=== PATIENT | female | born 1940 | race Caucasian/White ===

== ENCOUNTER 2023-07-11 10:52 | Inpatient (IN) | payer MEDICARE, SELFPAY ==
[2023-07-11] VITALS (83 sets, daily range): BP systolic 54–241; BP diastolic 39–199; PULSE 2–131; BMI 28.3
[2023-07-11] MEDS: LASIX 40 MG IV ×3 (08:48→16:36)
[2023-07-11] MEDS: DECADRON 10 MG IV (08:49)
[2023-07-11] MEDS: VENTOLIN NEBULES 7.5 MG INH (08:50)
--- NOTE | 2023-07-11 08:51 | ED.GENMED ---
History of Present Illness
General
Chief Complaint: Breathing Problem
Source: patient and ambulance crew
Exam Limitations: clinical condition
Time Seen by Provider: 07/11/23 08:40
Nursing documentation reviewed up to this point in time: agreed with
Travel History
Have you had any contact with someone who has COVID-19?: No
Do you have any symptoms of coronavirus? Fever > 100 degrees, chills, cough, shortness of breath, sore throat, loss of taste or smell, muscle aches, or headache?: No
History of Present Illness
History of Present Illness:
82-year-old female prior smoker has COPD hypertension has been sick for few days saw her PCP given an inhaler worsened over the past day or so up on like coughing possibly had a fever EMS was called found her agitated hypoxic did not tolerate a neb
pulse ox of around 80 tachypneic tachycardic placed on a nonrebreather brought here she is able to complete short sentences, has some lower extremity edema crackles or rhonchi
Past History
Past History
ED Past Medical History: Cancer (Breast), COPD, HTN and Hypercholesterolemia
ED Past Surgical History: Other (Lumpectomy, mastectomy, gisttumor)
Social History
Tobacco: Former smoker (2 PPD 40+ years)
Alcohol: None
Living: with family
Family History
Family History: Unable to obtain
Review of Systems
Review of Systems
Unable to obtain full review of systems at this time due to: due to acuity
All Other Systems: Not applicable
Constitutional: Reports fever
Respiratory: Reports cough and trouble breathing
Cardiac: Reports no symptoms; Denies chest pain
ABD/GI: Reports no symptoms
: Reports no symptoms
Musculoskeletal: Reports no symptoms
Skin: Reports no symptoms
Neurological: Reports no symptoms
Phy Exam
Physical Exam
Physical Exam:
Physical Exam
General: Ill-appearing female tachypneic tachycardic
Neck: No jaundice
Heart: Tachycardic
Lungs: Poor air movement crackles and rhonchi
Abdomen: normal bowel sounds. not tender. no CVAT
Neuro: alert and oriented. no focal neurological deficits
Skin: no rash
Psychiatric: well kept. interactive and cooperative
Extremities: no edema. no calf tenderness. negative homans. good distal pulses
Scores
Heart Failure Risk
Heart Failure Risk Score: Yes
History of Stroke or TIA: No
History of intubation for respiratory distress: No
Heart rate on ED arrival >/= 110: Yes
SaO2 <90% on arrival on room air: Yes
HR >/=110 during 3min walk test (or too ill to perform test): Yes
ECG has acute ischemic changes: Yes
Urea >/=12mmol/L (BUN 33.6mg/dL): Yes
Serum CO2>/=35mmol/L: No
Troponin I or T elevated to CT Level (0.4mg/dL): No
NT-proBNP >/=5,000ng/L (5,000pg/ml): Yes
HF Risk Score: 7
Admission Status: VERY HIGH RISK 69.8% Consider admission to hospital
Course
Orders/Labs/Results
Orders:
Orders
07/11/23 08:39
Portable Chest Xray [CR Chest Portable - 1 View] Urgent
Comment:
Reason For Exam: breathoing
Reason Study Needs to be Portable: Patient Unstable
07/11/23 08:40
Cardiac Monitoring- Treatment ONCE
IV Insert/Care/Rem.- Treatment PRN
Albuterol Sulfate [Ventolin Nebules] 7.5 mg INH R NOW STA
Dexamethasone Sod Phosphate [Decadron] 10 mg IV NOW STA
07/11/23 08:41
Electrocardiogram (*1) Stat
Reason for Study: Other
Other Reason for Exam: pneumonia
EKG- Treatment ONCE
07/11/23 08:44
Furosemide [Lasix] 40 mg IV NOW STA
07/11/23 08:45
Furosemide [Lasix] 40 mg .ROUTE .STK-MED ONE
Bipap [RESP] Urgent
Patient to use own unit?: No
Inspiratory Pressure (cm H2O): 12
Expiratory Pressure (cm H2O): 5
07/11/23 08:49
Add On- LAB Urgent
Tests Added?: procal
07/11/23 08:53
COVID-19 Antigen Urgent
Source: Nasal Swab
Complete Blood Count/With Diff Urgent
Lactic Acid Q4H
Comment: CANCEL 2nd LACTIC ACID IF 1st LACTIC ACID IS LESS THAN 2
NT-proBNP Urgent
Troponin I Urgent
Blood Culture Q30M
MARJORIE Source: Blood/Venous
Specimen Description:
Influenza A+B Rapid Molecular Urgent
MARJORIE Source: Nasal Swab
Specimen Description:
07/11/23 09:00
Nitroglycerin 100 mg/250 ml [Nitroglycerin Premix] 100 mg in 250 ml IV NOW
Initial dose in mcg/min, then titrate:: 100
Titrate to keep:: Other
Titrate to keep other:: SBP less than 140 mmHg
Titrate by mcg/min:: 20 mcg/min
Frequency of titrations (minutes):: every 1 minute (after initial bolus)
Additional Titration Instructions:: Bolus 400 mcg/min x 2 min. Decrease to 100 mcg/min & titrate
Maximum dose in mcg/min:: 200
Begin to taper infusion when:: Remained at goal for 2hrs
Taper by mcg/min:: 5 mcg/min
Frequency of taper (minutes) if patient maintains goal:: 30
Taper to off?: Yes
If infusion off & no longer maintaining goal:: Contact Provider
07/11/23 09:15
Blood Culture Q30M
MARJORIE Source: Blood/Venous
Specimen Description:
07/11/23 09:16
FentaNYL 1,000 MCG/100 ML [Sublimaze] 1,000 mcg in 100 ml .ROUTE .STK-MED
Propofol 1,000,000 Mcg/100 ml [Diprivan] 1,000,000 mcg in 100 ml .ROUTE .STK-MED
07/11/23 09:21
Arterial Blood Gas Urgent
%Oxygen/Room Air: nrb
07/11/23 09:30
Portable Chest Xray [CR Chest Portable - 1 View] Urgent
Comment:
Reason For Exam: tube placement
Reason Study Needs to be Portable: Unable to Transport
07/11/23 09:31
Basic Metabolic Panel Routine
Procalcitonin Routine
07/11/23 09:34
FentaNYL 1,000 MCG/100 ML [Sublimaze] 1,000 mcg in 100 ml IV NOW
Indication:: Light Sedation
Begin Infusion:: Now
Goal:: pain score </= 1, CPOT 0-2
Maximum dose in mcg/hr:: 300
Initial Dose in mcg/hr:: 50
Titration Instructions:: Titrate every 30 minutes if patient exhibits signs of pain or discomfort
Titration Instructions:: (pain score >/= 2, CPOT >/= 3).
Titration Instructions:: Administer bolus dose and increase infusion by 25 mcg/hr.
Taper Instructions:: If pain score at goal for 4 consecutive hours (pain score </= 1, CPOT 0-2)
Taper Instructions:: decrease infusion by 50 mcg/hr every 2 hours.
Taper Instructions:: When dose </= 50 mcg/hr may turn infusion off and consider PRN
Taper Instructions:: intermittent bolus doses only.
Over-sedation Instructions:: If CPOT 0-2 (goal) and RASS -3 to -5 (below goal) decrease sedative by 50%
Over-sedation Instructions:: first. If pain score remains at goal and RASS remains below goal in 1 hour,
Over-sedation Instructions:: decrease opioid infusion by 50%.
Notify provider:: immediately if pt exhibits: chest wall rigidity, hemodynamic instability,
Notify provider:: agitation/pain despite maximum dosing, pain when RASS below goal.
Additional Instructions:: Patient MUST be mechanically ventilated.
Fentanyl Citrate/Pf [Sublimaze] 50 mcg IV [id number] PRN
Fentanyl Citrate/Pf [Sublimaze] 80 mcg IV NOW STA
07/11/23 09:38
[employer] Consult Urgent
Consulting Provider: Darryl London
Was physician already notified: Yes
07/11/23 09:39
CARDIOLOGY CONSULT Urgent
Consulting Provider: Alen Jc
Was physician already notified: Yes
07/11/23 09:40
Romero Placement- Treatment ONCE
Reason for insertion: I&O's Critical Care
07/11/23 09:41
Furosemide [Lasix] 40 mg IV NOW STA
07/11/23 09:46
Echo 2D MMode Color/Doppler Urgent
Reason for Study: chf-portable bed 24 in ER thanks
Aspirin 300 mg RECTAL NOW STA
07/11/23 10:18
NORepinephrine 4 MG/250 ML [Levophed] 4 mg in 250 ml .ROUTE .STK-MED
07/11/23 10:28
ABG [Arterial Blood Gas] Routine
%Oxygen/Room Air: andi 100
07/11/23 10:30
NORepinephrine 4 MG/250 ML [Levophed] 4 mg in 250 ml IV PER PROTOCOL
Initial dose in mcg/min, then titrate:: 2
Titrate to keep:: SBP > 90 mmHg
Titrate by mcg/min:: 1-2 mcg/min
Frequency of titrations (minutes):: 5
Maximum dose in ICU in mcg/min:: 30
Maximum dose in IMU in mcg/min:: 8
Maximum dose in IVU in mcg/min:: 4
Begin to taper infusion when:: Remained at goal for 4hrs
Taper by mcg/min:: 1-2 mcg/min
Frequency of taper (minutes) if patient maintains goal:: 30
Taper to off?: Yes
If infusion off & no longer maintaining goal:: Contact Provider
07/11/23 10:31
Admit/Transfer Patient As Directed
Co-Sign Provider:
Level of Care: Inpatient admission
Assign to:: ICU
Physician / Group: hospitalist-Tess
Diagnosis: flash pulm edema
Reason for Hospitalization: ICU, vent
Expected length of stay greater than two midnights?: Yes
ELOS- Estimated Length of Stay in days: 4
I certify the patient meets the requirements for IP care: Yes
07/11/23 10:33
Code Status As Directed
Resuscitation Status: Full Code
07/11/23 12:45
Lactic Acid Q4H
Comment: CANCEL 2nd LACTIC ACID IF 1st LACTIC ACID IS LESS THAN 2
Abnormal Lab Results
07/11/23 07/11/23
08:53 09:21
MCV 101.6 H fL
(81.0-99.0)
MCH 32.9 H pg
(27.0-31.0)
MCHC 32.3 L g/dL
(33.0-37.0)
Absolute Monos (auto) 1.2 H 10^3/uL
(0.1-0.6)
Monocytes % 14.6 H %
(1.7-9.3)
pH 7.20 L
(7.35-7.45)
pCO2 52 H mmHg
(32-35)
pO2 198 H mmHg
(83-108)
HCO3 20.3 L mmol/L
(21-28)
ABG O2 Sat (Measured) 99.7 H %
(94-98)
Lactic Acid 4.0 H* mmol/L
(0.7-2.0)
Troponin I 0.063 H* ng/ml
07/11/23 08:53
Vital Signs
Initial and Last Documented VS:
Initial Vital Signs
Pulse Resp Pulse Ox
118 21 98
07/11/23 08:39 07/11/23 08:39 07/11/23 08:39
Last Documented Vital Signs
Pulse Resp BP Pulse Ox
128 26 176/124 98
07/11/23 09:54 07/11/23 09:50 07/11/23 09:54 07/11/23 09:50
Procedures
Intubations
Procedure completed by: el/zuri
Method of Intubation: glidescope
Tube size (cm): 7.5
Placement confirmed by: auscutation, CXR and capnography
Breath sounds after intubation: equal
Intubation complications: no complications
MDM/Problems Addressed
Differential Diagnosis Includes:
CHF hypertensive urgency CT pneumonia COPD pneumothorax
MDM/Problems Addressed:
Hypoxia
Chronic conditions affecting care:
COPD
Chronic conditions affecting care: COPD
Acute Exacerbation and/or Progression of Chronic Illness: COPD
*Pulse Oximetry
Patient hypoxic: yes
Comment: 79
*EKG
Interpreted by ED Provider?: Yes
Interpretation: abnormal
Comparison EKG: changes noted
Heart Rate: 138
Rate: tachycardiac
Ischemia: non-specific ST changes
*Medical Tech Interpretation
Rate: tachycardiac
Interpretation: abnormal
Heart Rate: 136
Rhythm: sinus
*Critical Care Note
Total Time (30-74mins, 75-104mins- exclusive of procedures): 35
Data Reviewed
Source: patient, records and previous hospital records
Update Note
Update Note:
Update chest x-ray noted blood pressure up prior echo noted try nebs steroids a dose of diuretics, labs including troponin proBNP cultures procalcitonin pending as his chest's report will check ABG BiPAP follow closely
BP up Tridil intervention with IV nitrates follow closely
Update patient continues to be tachypneic tachycardic agitated despite maximal noninvasive measures intubated without difficulty
ABG sent prior to intubation will adjust ventilator accordingly message sent to hospitalist cardiology petrologist
10:15 AM blood pressure soft now sedation and nitro held will start low-dose Levophed
ED Attending Note
-
Portions of this chart may have been created with voice recognition software.� Occasional wrong word or��sound alike� substitutions may have occurred due to the inherent limitations of voice recognition software.
Discharge Plan
Departure
Patient Disposition: Admit
Date of Disposition: 07/11/23
Time of Disposition: 09:37
Admit to: ICU
Presentation/result/management discussed w/ accepting MD/DO: Hospitalist
Patient with high blood pressure during this ER visit?: Yes
Condition: Critical
Covid-19: Not Applicable
Discharge Problem:
Acute hypercapnic respiratory failure
Prescriptions:
No Action
hydroxyurea 500 MG capsule
1,500 mg PO MO
hydroxyurea 500 MG capsule
1,000 mg PO SUTUWETHFRSA
aspirin 81 MG tablet,delayed release (DR/EC)
81 mg PO DAILY
Rx Instructions:
has not been taking regularly
losartan 25 mg Tablet
25 mg PO DAILY
hydroxychloroquine [Plaquenil] 200 mg Tablet
200 mg PO BID
Humira(CF) Pen 40 mg/0.4 mL Pen Injector Kit
0 mg SC .COMPLEX
Rx Instructions:
inject one - 40 mg/0.4 mL pen every 2 weeks
Trelegy Ellipta 200-62.5-25 mcg Blister With Device
1 inh INHALATION R DAILY
albuterol sulfate [Ventolin HFA] 90 MCG/PUFF HFA aerosol inhaler
2 puff inhalation R Q6HPRN PRN (Reason: sob)
guaifenesin [Mucus Relief ER] 600 MG tablet extended release 12hr
600 mg PO [id number] PRN (Reason: cough)
nifedipine [Nifedical XL] 30 mg Tablet Extended Release 24hr
30 mg PO DAILY
Patient Comments:
07/11/23-patient did not like the way (weight gain) the 60mg made her feel so she went back to the 30mg daily
Discharge Date and Time
Print Language: TELUGU
[2023-07-11] MEDS: NITROGLYCERIN PREMIX 250 IV (09:08)
[2023-07-11 09:14] LABS: % Eosinophils 2.1 % (0-6); % Immature Granulocytes 0.2 % (0-0.5); % Lymphocytes 27.9 % (20.5-51.1); % Monocytes 14.6 % (1.7-9.3); % Neutrophils 53.2 % (42.2-75.2); Absolute Basophils 0.2 10^3/uL (0-0.2); Absolute Eosinophils 0.2 10^3/uL (0-0.7); Absolute Lymphocytes 2.4 10^3/uL (1.2-3.4); Absolute Monocytes 1.2 10^3/uL (0.1-0.6); Absolute Neutrophils 4.5 10^3/uL (1.4-6.5); Hematocrit 43.6 % (37.0-47.0); Hemoglobin 14.1 g/dL (12.0-16.0); Mean Corp Hgb Conc. 32.3 g/dL (33.0-37.0); Mean Corpuscular Hgb 32.9 pg (27.0-31.0); Mean Corpuscular Volume 101.6 fL (81.0-99.0); Mean Platelet Volume 10.4 fL (7.4-10.4); Nucleated Red Blood Cells % 0 %; Platelet Count 336 10^3/uL (130-400); Red Blood Cell Count 4.29 10^6/uL (4.20-5.40); White Blood Cell Count 8.4 10^3/uL (4.8-10.8)
--- NOTE | 2023-07-11 09:28 | EDRN ---
Decision to intubate, all supplies at bedside.
Etomidate 20mg IVP at 0928
Anectine 150mg IVP at [address] at the teeth positive color change bilateral breath sounds. Awaiting PCXR
Fentanyl infusion started for management at 78mcg
Respiratory at bedside setting vent.
[2023-07-11 09:29] LABS: B.E. -8.1 mmol/L; HCO3 20.3 mmol/L (21-28); O2 Saturation % 99.7 % (94-98); PCO2 52 mmHg (32-35); PO2 198 mmHg (83-108)
[2023-07-11 09:37] LABS: NT-proBNP 11400 pg/ml; Troponin I 0.063 ng/ml
[2023-07-11] MEDS: SUBLIMAZE 100 IV ×2 (09:47→17:23)
[2023-07-11 10:00] LABS: COVID-19 Antigen Negative (Negative)
--- NOTE | 2023-07-11 10:24 | CON.CAR ---
Consultation
Consultation Request
Date/Time Consultation Requested: 07/11/2023
Date/Time Consultation Performed: 07/11/2023
Requesting Provider: Dr Pulido
Performing Provider: Dr. Jc (former patient of Dr. Snyder)
Reason for Consultation: Hypertensive emergency
Medical History
-
Chief Complaint: Hypertensive emergency
History of Present Illness:
82-year-old female with a past medical history of COPD, hypertension, hypercholesterolemia and former smoker who was brought in by EMS. The reported history as she had been in 'sick for few days' saw her PCP who was given her an inhaler. She began
to feel even worsening coughing and was found to be agitated and hypoxic by EMS. She had a pulse ox around 88% and was tachypneic and tachycardic and placed on a nonrebreather. While in the ED, this continued so she was intubated. We are asked to
evaluate for hypertensive emergency. She was started on nitroglycerin gtt and given IV lasix and steroids.
She is awake and shaking head yes and no to minimal questions. Apparently she had been feeling short of breath and ill over the last several days. She saw her primary care doctor and started an inhaler. She shakes her head yes to some chest pain
but then when I hold my hand over my chest she denies it. Currently, she is feeling comfortable outside of throat burning since being intubated. That is a new feeling. Further history was not possible due to intubation
Past Medical History
Past Medical History: COPD and HTN
Social History
Tobacco: Former Smoker
Family History
Family History: Reviewed & Not Pertinent
Allergies / Home Medications
Allergy/AdvReac Type Severity Reaction Status Date / Time
Sulfa (Sulfonamide Allergy Pharmacy Verified 01/27/15 06:03
Antibiotics) to Review
[Sulfa (Sulfonamides)]
dust mites Allergy sneezing Uncoded 01/27/15 06:03
rag weed,dust,dander Allergy post nasal Uncoded 01/27/15 06:03
drip,sneezing,runny
nose
�Medication �Instructions �Recorded �Confirmed �Type
hydroxyurea 500 mg capsule 1,000 mg PO SUTUWETHFRSA 12/31/14 07/11/23 History
hydroxyurea 500 mg capsule 1,500 mg PO MO 12/31/14 07/11/23 History
aspirin 81 mg tablet,delayed 81 mg PO DAILY 03/04/16 07/11/23 History
release
adalimumab 40 mg/0.4 mL 0 mg SC .COMPLEX 07/11/23 07/11/23 History
subcutaneous pen kit (Humira(CF)
Pen)
albuterol sulfate 90 mcg/actuation 2 puff inhalation R Q6HPRN PRN sob 07/11/23 07/11/23 History
aerosol inhaler (Ventolin HFA)
fluticasone fur. 200 mcg-umeclid 1 inh inhalation R DAILY 07/11/23 07/11/23 History
62.5 mcg-vilant 25 mcg
inhalat.powder (Trelegy Ellipta)
guaifenesin 600 mg tablet, 600 mg PO [id number] PRN cough 07/11/23 07/11/23 History
extended release 12 hr (Mucus
Relief ER)
hydroxychloroquine 200 mg tablet 200 mg PO BID 07/11/23 07/11/23 History
(Plaquenil)
losartan 25 mg tablet 25 mg PO DAILY 07/11/23 07/11/23 History
nifedipine 30 mg tablet,extended 30 mg PO DAILY 07/11/23 07/11/23 History
release 24 hr
Review of Systems
-
Unable to obtain full review of systems at this time due to: Patient Intubation
Physical Exam
Vital Signs
Pulse Resp BP Pulse Ox
128 26 176/124 98
07/11/23 09:54 07/11/23 09:50 07/11/23 09:54 07/11/23 09:50
Lab Results
04/22/24 08:53
Troponin I 0.063 ng/ml H* 07/11/23 08:53
Rlq-T-Czsyallinzs Pept 37472 pg/ml 07/11/23 08:53
Physical Exam
General: Well Developed, Well Nourished and No Apparent Distress (while on the ventillator)
HEENT: Normocephalic and Anicteric
Respiratory: Clear, Wheezes (None), Crackles (None) and Rhonchi (None)
Cardiac: S1/S2, Regular Rhythm and Murmur (none)
Breast: Deferred by me
GI: Soft
Musculoskeletal: No Clubbing, No Cyanosis and No Edema
Neuro: AO x 3
Impression / Plan
-
Ms. Andrade is an 82-year-old female who presents for evaluation of acute worsening of shortness of breath. Upon arrival to the ED she was tachycardic and tachypneic and intubated. Initially she had a hypertensive emergency. Nitroglycerin was
started with abrupt drop of her blood pressure after intubation. Evaluation shows a chest x-ray with diffuse interstitial marking and a 'markedly elevated proBNP consistent with heart failure.
Acute heart failure with reduced ejection fraction:
-Presented with hypertensive emergency
-I just reviewed the echocardiogram completed at the bedside. LVEF is 35 to 40% with global hypokinesis. The basal owo are best preserved.
-Will continue IV Lasix 40 mg IV twice daily. This will require intensive monitoring of her renal function and blood pressure.
-Etiology of exacerbation may be acute illness however she does have a former smoking history.
-Will add GDMT as able, currently n.p.o.
-Will discuss and likely pursue cardiac catheterization once stabilized.
New cardiomyopathy: Unclear etiology, pattern may be significant for Takotsubo's, but with her risk factors cardiac catheterization will be needed during this hospitalization.
Abnormal troponin: Initial EKG with extensive fling, I suspect no big change but this will be repeated.
-Troponin 0.063, will trend
-I am a bit concerned about acute coronary syndrome given possible report of chest pain and a smoker with new heart failure and hypertensive emergency.
-Blood pressure now overcontrolled, will start an aspirin and heparin drip
-Will check lipid panel
Hypertensive emergency:
-Started on a nitroglycerin drip given acute heart failure and hypertensive emergency, now overcorrected.
-Would aim to keep blood pressure around 140-150 systolic, asked the nurse to wean off nitroglycerin drip
-Will monitor
Ventilator dependent respiratory failure with both hypercapnic and hypoxic features
-Care as per incident commander and medicine
COPD exacerbation requiring intubation:
-Agree with IV steroids
Case discussed with Dr. Pulido.
Critical care time spent 45 minutes.
Data Reviewed
-
EKG: Tracing Personally Visualized and interpreted (Poor tracing, extensive artifact, Sinus tachycardia with LAFB, RAD, i suspect no change from prior but fling in the lateral leads)
Radiology: Image Personally Visualized and interpreted (Diffuse interstitial markings repeat with ett and what looks like more cephalization and interstitial markings)
Medical Tests (Nuc Med, Echo etc): Report Reviewed by me (TTE 05/11/2016 normal biventricular size and systolic function without valvulopathy., Normal Lexiscan 04/28/2016)
--- NOTE | 2023-07-11 10:26 | EDRN ---
Cardiac services at bedside for ECHO and Resp for ABG. patient's BP dropped, verbal orders from Dr. Navarrete to titrate back all infusions.
[2023-07-11 10:36] LABS: B.E. -3.6 mmol/L; HCO3 22.7 mmol/L (21-28); O2 Saturation % 99.5 % (94-98); PCO2 45 mmHg (32-35); PO2 180 mmHg (83-108); pH 7.31 (7.35-7.45)
--- NOTE | 2023-07-11 10:44 | HPS.HSE ---
Family Physician
-
Family Physician: NO INTERVIEW UNKNOWN
Chief Complaint
-
SOB
History of Present Illness
Patient is intubated and cannot offer any history therefore information has been taken from the ED physician documentation.
Patient is an 82-year-old female who reportedly has been sick for a few days prior to admission and visited her primary care physician. She was given an inhaler but her shortness of breath worsened over the past day prior to admission. Emergency
medical services was called and found the patient agitated and hypoxic. Pulse ox was 80% and patient was tachypneic and tachycardic. She was placed on a nonrebreather mask and transferred here. She did not tolerate initial therapies of BiPAP at
all. Chest x-ray shows pulmonary edema and the patient was intubated.
Medical History
Past Medical History
Past Medical History: Reports Other
Additional Past Medical History:
Obtained from previous records
Chronic obstructive pulmonary disease
Essential hypertension
Hyperlipidemia
Past Surgical History: Reports Other
Additional Past Surgical History:
Unknown
Social History
Tobacco: Former Smoker
Alcohol: None
Drug: None
Family History
Family History: Not pertinent
Allergies / Home Medications
Allergies reflects when Allergies were last updated in [facility].
Home Medications with original date entered in [facility]
Allergy/Medication List:
Allergies
Allergy/AdvReac Type Severity Reaction Status Date / Time
Sulfa (Sulfonamide Allergy Pharmacy Verified 01/27/15 06:03
Antibiotics) to Review
[Sulfa (Sulfonamides)]
dust mites Allergy sneezing Uncoded 01/27/15 06:03
rag weed,dust,dander Allergy post nasal Uncoded 01/27/15 06:03
drip,sneezing,runny
nose
Home Medications
hydroxyurea 500 mg capsule 1,000 mg PO SUTUWETHFRSA 12/31/14
hydroxyurea 500 mg capsule 1,500 mg PO MO 12/31/14
aspirin 81 mg tablet,delayed release 81 mg PO DAILY 03/04/16
adalimumab 40 mg/0.4 mL subcutaneous pen kit (Humira(CF) Pen) 0 mg SC .COMPLEX 07/11/23
albuterol sulfate 90 mcg/actuation aerosol inhaler (Ventolin HFA) 2 puff inhalation R Q6HPRN PRN sob 07/11/23
fluticasone fur. 200 mcg-umeclid 62.5 mcg-vilant 25 mcg inhalat.powder (Trelegy Ellipta) 1 inh inhalation R DAILY 07/11/23
guaifenesin 600 mg tablet, extended release 12 hr (Mucus Relief ER) 600 mg PO [id number] PRN cough 07/11/23
hydroxychloroquine 200 mg tablet (Plaquenil) 200 mg PO BID 07/11/23
losartan 25 mg tablet 25 mg PO DAILY 07/11/23
nifedipine 30 mg tablet,extended release 24 hr 30 mg PO DAILY 07/11/23
Review of Systems
-
Unable to obtain full review of systems at this time due to: Patient Intubation
Physical Exam
Vital Signs
Vital Signs
Pulse Resp BP Pulse Ox
128 26 176/124 98
07/11/23 09:54 07/11/23 09:50 07/11/23 09:54 07/11/23 09:50
Physical Exam
General: Well Developed, Well Nourished, Appears in Distress and Other (not at all synchronous with the ventilator)
HEENT: NormoCephalic and Atraumatic
Respiratory: Rhonchi and Crackles
Cardiac: S1/S2, Regular Rhythm and Tachycardia
GI: Soft, Non Tender, Non Distended and Normal Bowel Sounds
Musculoskeletal: No Clubbing, No Cyanosis and No Edema
Skin: Warm
Neuro: Awake
Laboratory Results
-
07/11/23 08:53
Laboratory Results
pH 7.20 (7.35-7.45) L 07/11/23 09:21
pCO2 52 mmHg (32-35) H 07/11/23 09:21
pO2 198 mmHg (83-108) H 07/11/23 09:21
HCO3 20.3 mmol/L (21-28) L 07/11/23 09:21
Lactic Acid 4.0 mmol/L (0.7-2.0) H* 07/11/23 08:53
Troponin I 0.063 ng/ml H* 07/11/23 08:53
Impression/Plan
-
pt is an 82 year old female
Acute respiratory distress requiring intubation and ventilator support (VDRF)--presumed due to flash pulmonary edema--admit to intensive care unit--consult labeling specialist/consult cardiology--check echo--continue diuresis--trend troponins
Flash pulmonary edema--likely secondary to hypertensive emergency from presumed hypoxia and inability to breathe--there may be some component of a chronic obstructive pulmonary disease exacerbation due to a viral illness prior to admission--continue
IV steroids and diuresis--echo pending--wean nitro to off
Essential hypertension--with presumed hypertensive emergency--blood pressure is exceedingly low now from intubation and sedation--was placed on nitro drip--weaned off
Lactic acidosis--presumed due to anaerobic metabolism--doubt sepsis--if temperature recurs we will start antibiotics but for now we will hold
Patient immunosuppressed--on Humira and Plaquenil, hydroxyurea--unknown reason--unclear if rheumatologic or hematologic reason--nevertheless, hold for now
DVT prophylaxis--Lovenox
CODE STATUS--full code
Friend at bedside
[2023-07-11] MEDS: ASPIRIN 300 MG RECTAL (11:37)
[2023-07-11] MEDS: LEVOPHED 250 IV (11:42)
[2023-07-11 11:44] LABS: ALT (SGPT) 80 U/L (0-35); AST (SGOT) 139 U/L (14-36); Albumin 3.5 g/dl (3.5-5.0); Alkaline Phosphatase 76 U/L (38-126); Blood Urea Nitrogen 24 mg/dl (7-17); Calcium 8.5 mg/dl (8.4-10.2); Carbon Dioxide 21 mmol/L (22-30); Chloride 106 mmol/L (98-107); Glucose 201 mg/dl (70-99); Potassium 3.9 mmol/L (3.5-5.1); Sodium 136 mmol/L (135-145); Total Bilirubin 0.9 mg/dl (0.2-1.3); eGFR 45.76
--- NOTE | 2023-07-11 12:21 | CON.INTV ---
Consultation
Consultation Request
Date/Time Consultation Requested: 07/11/2023
Date/Time Consultation Performed:
Requesting Provider: Emergency department
Performing Provider: Dr. Darryl London
Reason for Consultation: Critical care management
Medical History
-
Chief Complaint: Shortness of breath, hypertension
History of Present Illness:
History obtained from hospital records and past medical records. Patient is a 82-year-old female with past medical history of COPD, and hypertension, former smoker who presented to ED on 07/11/2023 with shortness of breath, tachypnea, tachycardia
and severe hypertension. 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 While in the ED, her blood pressure rafa to about 205/199, pulse 135, Her chest x-ray was significant for diffuse interstitial
pneumonitis and pulmonary edema, lactate 4.0, and ABG , 7.20/52/198 and HCO3 of 20.3. Repeat 7.31/47/180 with HCO3 22.7. Nitroglycerin was started in the ED with subsequent drop in blood pressure, she was placed on BiPAP but did not tolerate and
was intubated. She also had mild transaminitis with proBNP 11,400, and troponin 0.063. Patient was transferred to ICU for further management.
Past Medical History
Past Medical History: COPD, HTN, Hypercholesterolemia, Psychiatric (MDD) and Other (Myelodysplastic syndrome, history of breast cancer, rheumatoid arthritis, iron deficiency anemia.)
Past Surgical History: Other (Cataract surgery, GIST tumor excision, umbilical hernia repair 12/2007, lumpectomy, mastectomy.)
Social History
Tobacco: Former Smoker (37 pack years, quit 2000)
Alcohol: Occasional
Drug: None
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
Family History
Family History: Adopted
Allergies / Home Medications
Allergies
Allergy/AdvReac Type Severity Reaction Status Date / Time
Sulfa (Sulfonamide Allergy Pharmacy Verified 11/09/15 06:03
Antibiotics) to Review
[Sulfa (Sulfonamides)]
dust mites Allergy sneezing Uncoded 01/27/15 06:03
rag weed,dust,dander Allergy post nasal Uncoded 01/27/15 06:03
drip,sneezing,runny
nose
Home Medications
�Medication �Instructions �Recorded �Confirmed �Last Taken �Type
hydroxyurea 500 mg capsule 1,000 mg PO SUTUWETHFRSA 12/31/14 07/11/23 03/03/16 History
hydroxyurea 500 mg capsule 1,500 mg PO MO 12/31/14 07/11/23 03/01/16 History
aspirin 81 mg tablet,delayed 81 mg PO DAILY 03/04/16 07/11/23 03/03/16 History
release
adalimumab 40 mg/0.4 mL 0 mg SC .COMPLEX 07/11/23 07/11/23 Unknown History
subcutaneous pen kit (Humira(CF)
Pen)
albuterol sulfate 90 mcg/actuation 2 puff inhalation R Q6HPRN PRN sob 07/11/23 07/11/23 Unknown History
aerosol inhaler (Ventolin HFA)
fluticasone fur. 200 mcg-umeclid 1 inh inhalation R DAILY 07/11/23 07/11/23 Unknown History
62.5 mcg-vilant 25 mcg
inhalat.powder (Trelegy Ellipta)
guaifenesin 600 mg tablet, 600 mg PO [id number] PRN cough 07/11/23 07/11/23 Unknown History
extended release 12 hr (Mucus
Relief ER)
hydroxychloroquine 200 mg tablet 200 mg PO BID 07/11/23 07/11/23 Unknown History
(Plaquenil)
losartan 25 mg tablet 25 mg PO DAILY 07/11/23 07/11/23 Unknown History
nifedipine 30 mg tablet,extended 30 mg PO DAILY 07/11/23 07/11/23 Unknown History
release 24 hr
Review of Systems
-
Unable to Obtain full review of systems at this time due to: Patient Intubation
Vitals / Labs / Diagnostic Testing
Vital Signs
Pulse Resp BP Pulse Ox
128 26 176/124 98
07/11/23 09:54 07/11/23 09:50 07/11/23 09:54 07/11/23 09:50
Lab Data
07/11/23 08:53
07/11/23 11:16
Laboratory Results
07/11/23 07/11/23
09:21 10:28
pH 7.20 L 7.31 L
pCO2 52 H 45 H
pO2 198 H 180 H
HCO3 20.3 L 22.7
O2 Delivery Level
Microbiology
07/11/23 08:53 Nasal Swab Influenza Types A & B (TJ) - Final
Negative for Influenza A & B, NAAT
Negative results must be combined with clinical observations
and patient history.
Nucleic Acid Amplification test (NAAT)performed on the
[employer] NOW platform.
Diagnostic Testing:
Physical Exam
-
HEENT: Normocephalic and Anicteric
Cardiovascular: Regular Rhythm, Rub (n), Calf Tenderness (n) and JVD (n)
Respiratory: Clear, Wheeze (n), Rales (n), Rhonchi (n) and Non-Labored Respirations
GI: Soft, Non Distended, Non Tender and Normal Bowel Sounds
Neurology: Awake, Alert and Other (Following commands)
Skin: Warm
General: Comfortable
Assessment
-
ASSESSMENT:
Barbara is an 82-year-old female with past medical history of COPD who presented to ED on 07/11/2023 with agitation, hypoxia, tachypnea, tachycardia, and hypertensive emergency. She arrived on a nonrebreather mask and was transitioned to BiPAP but
did not tolerate and was subsequently intubated and admitted to ICU for further management.
Impression:
Presentation with severe hypoxia and hypercapnia
Requiring intubation and ventilatory support 07/11/2023.
Hypertensive emergency
HTN requiring nitroglycerine - now hypotensive with overcorrection
Resolved with Levophed
Lactic acidosis
Resoled
Elevated troponin I
Worsening
Acute heart failure with reduced ejection fraction
CONDITIONS PRIOR TO ADMISSION:
COPD
Essential hypertension
Major depressive disorder
Hypercholesterolemia
Myelodysplastic syndrome
history of breast cancer
rheumatoid arthritis
iron deficiency anemia.
Impression/Plan:
Presentation with severe hypoxia and hypercapnia
-Likely due to flash pulmonary edema in the setting of hypertensive emergency versus COPD exacerbation.
-Patient intubated, now ventilator dependent, 7.31/47/180, peak/plateau 22/15.5.
-CXR 07/11/2023 with widespread bilateral prominence interstitial markings likely due to interstitial edema/pneumonitis.
-Continue IV Lasix.
-Follow creatinine with Lasix administration.
-IV steroids
-Daily ABG.
-Monitor respiratory status and wean as needed.
-Monitor blood pressure.
Hypertensive emergency
-Improved with nitroglycerin administration, weaned off.
-Levophed per protocol given low blood pressure.
-Trend troponins
-Monitor blood pressure.
Lactic acidosis
-Likely anaerobic metabolism given severe hypoxia.
-Resolved.
-Monitor with oxygen supplementation.
Acute heart failure with reduced ejection fraction
-Echo 07/11/2023 with moderately reduced left ventricular systolic function and EF 35 - 40%.
-Continue Lasix.
-Trend troponin 0.063.
-Consider cardiac catheterization once stable per cards
-Cardiology following.
Elevated troponin I
-Worsening, likely due to cardiac stretch versus NSTEMI
-Trend
DVT prophylaxis: Lovenox
Data:
CXR 07/11/2023: Widespread bilateral prominent predominantly interstitial markings. Some of several differential diagnostic possibilities include interstitial edema and pneumonitis.
Echo 07/11/2023:
Moderately reduced left ventricular systolic function.
Left ventricular ejection fraction is 35-40% by Monroe's method and visual assessment.
Global hypokinesis the mid to apical woo with basal woo best preserved.
No significant valvular disease.
Compared to previous echo 05/11/2016, the systolic dysfunction is new.
Data Reviewed
-
EKG: Tracing personally visualized and interpreted, Report reviewed by me and Discussed with Physician
Radiology: Image personally visualized and interpreted, Report reviewed by me and Discussed with Physician
Labs: Labs reviewed by me and Discussed with Physician
Old Records: Reviewed
--- NOTE | 2023-07-11 12:22 | EDRN ---
Patient's BP dropped to 50s systolic patient awake and alert. Dr. Navarrete notified and orders given to stop propofol and start levophed. Patient's BP improved while obtaining the medications and Dr. Pulido wishes to maintain systolic BP >90.
Cardiology later came into the room to assess the patient and ordered the Nitro infusion be stopped and to keep the BP >150 systolic. The nitro was stopped and levophed started to titrate to systolic BP >150
[2023-07-11 12:36] LABS: Procalcitonin 0.16 ng/ml (0.0-0.25)
[2023-07-11] MEDS: HEPARIN 4000 UNITS IV (12:54)
[2023-07-11] MEDS: HEPARIN 25000 UNITS/250 ML IV (12:55)
[2023-07-11 13:14] LABS: HDL Cholesterol 60 mg/dl; LDL Cholesterol, Calculated 50 mg/dl; Total Cholesterol 122 mg/dl (50-199); Triglyceride 60 mg/dl (10-149); Very Low Density Lipoprotein 12 mg/dl (0-30)
--- NOTE | 2023-07-11 13:30 | PTCARENOTE ---
1300-Received pt from ED via stretcher.Pt is awake,nodding/shaking head,and motioning appropriately to communicate.Denies pain at this time.+DUTTA noted.SR noted.Fentanyl and Levophed gtts infusing.#7.5 ETT to vent.Coarse breath sounds
throughout.Suctioned for minimal secretions.POX 97%FIO2 decreased to 50%.Romero draining clear yellow urine ~ 350 ml/hr.
1330-Fentanyl weaned to 75 mcg.Levophed weaned off. Heparin gtt infusing as ordered.
[2023-07-11 13:52] LABS: Lactic Acid 1.4 mmol/L (0.7-2.0)
[2023-07-11 14:12] LABS: APTT > 200.0 Sec (23.4-35.0)
--- NOTE | 2023-07-11 14:15 | PTCARENOTE ---
PTT>200.Cardiology AQUATIC PHYSIOTHERAPIST made aware.Heparin gtt on hold as per protocol.
[2023-07-11 15:58] LABS: Blood Urea Nitrogen 25 mg/dl (7-17); Calcium 8.9 mg/dl (8.4-10.2); Carbon Dioxide 19 mmol/L (22-30); Chloride 105 mmol/L (98-107); Estimated Creatinine Clearance 37 ml/min; Glucose 159 mg/dl (70-99); Potassium 3.9 mmol/L (3.5-5.1); Sodium 135 mmol/L (135-145); eGFR 45.76
[2023-07-11] MEDS: SUBLIMAZE 50 MCG IV (16:34)
--- NOTE | 2023-07-11 17:01 | PTCARENOTE ---
Pt assessed.No change in assessment noted.1630-Heparin gtt resumed at 750 unit/hr.Pt c/o throat pain.Fentanyl bolus given as ordered.
[2023-07-11] MEDS: DUONEB 3 ML INH (20:01)
[2023-07-11 20:08] LABS: Troponin I 0.194 ng/ml
--- NOTE | 2023-07-11 21:00 | PTCARENOTE ---
Rec'd pt intubated/comfortable on fentanyl gtt as ordered. Pt unrestrained/appropriate/following commands. Able to make needs known. Afebrile. NSR on monitor. BP stable off pressors. IV lines flushed/patent. Pulses palpable, trace edema in LEs.
Trop/EKG done at 1800. Hep gtt as ordered. #7.5, 23 at lip. AC 14, 40%, 600, 5. Coarse lungs sounds, crackles at bases. NPO, no GI access. Abdomen soft. Thermistor byers for critical I&Os draining clear yellow urine. Scattered bruises as documented
in skin. Will monitor.
[2023-07-11 23:27] LABS: APTT 56.3 Sec (23.4-35.0)
[2023-07-12] VITALS (63 sets, daily range): BP systolic 98–152; BP diastolic 37–111; PULSE 85; O2SAT 93; BMI 28.3
[2023-07-12] MEDS: SUBLIMAZE 50 MCG IV (00:53)
--- NOTE | 2023-07-12 01:00 | PTCARENOTE ---
Pt reassessed. No change in previous assessment. Pt resting comfortably at this time. PRN Fentanyl as needed.
[2023-07-12 01:14] LABS: Troponin I 0.184 ng/ml
[2023-07-12] MEDS: SUBLIMAZE 100 IV (04:19)
[2023-07-12 06:04] LABS: Venous Blood Gas B.E. 1.6 mmol/L (-4 to +4); Venous Blood Gas HCO3 23.9 mmol/L (22-27); Venous Blood Gas O2 Sat % 99.1 %; Venous Blood Gas pCO2 30 mmHg (35-48); Venous Blood Gas pH 7.51 (7.32-7.43); Venous Blood Gas pO2 211 mmHg (30-50)
[2023-07-12 06:05] LABS: Hemoglobin 12.7 g/dL (12.0-16.0); Mean Corp Hgb Conc. 34.3 g/dL (33.0-37.0); Mean Corpuscular Hgb 33.1 pg (27.0-31.0); Mean Corpuscular Volume 96.4 fL (81.0-99.0); Mean Platelet Volume 10.4 fL (7.4-10.4); Platelet Count 276 10^3/uL (130-400); Red Blood Cell Count 3.84 10^6/uL (4.20-5.40); Red Cell Dist. Width 13.5 % (11.5-14.5); Venous Blood Gas O2 Therapy 40%; White Blood Cell Count 8.6 10^3/uL (4.8-10.8)
[2023-07-12 06:23] LABS: APTT 53.4 Sec (23.4-35.0)
[2023-07-12 06:30] LABS: ALT (SGPT) 62 U/L (0-35); AST (SGOT) 53 U/L (14-36); Albumin 3.6 g/dl (3.5-5.0); Alkaline Phosphatase 66 U/L (38-126); Blood Urea Nitrogen 34 mg/dl (7-17); Calcium 8.9 mg/dl (8.4-10.2); Carbon Dioxide 24 mmol/L (22-30); Chloride 105 mmol/L (98-107); Estimated Creatinine Clearance 37 ml/min; Glucose 107 mg/dl (70-99); HDL Cholesterol 61 mg/dl; LDL Cholesterol, Calculated 51 mg/dl; Magnesium 1.7 mg/dl (1.6-2.3); Potassium 3.7 mmol/L (3.5-5.1); Sodium 137 mmol/L (135-145); Total Bilirubin 0.9 mg/dl (0.2-1.3); Total Cholesterol 128 mg/dl (50-199); Total Protein 6.1 g/dl (6.3-8.2); Triglyceride 80 mg/dl (10-149); Very Low Density Lipoprotein 16 mg/dl (0-30); eGFR 45.76
[2023-07-12] MEDS: DUONEB 3 ML INH ×2 (07:29→11:05)
--- NOTE | 2023-07-12 07:53 | PTCARENOTE ---
Received pt awake and alert.Communicating appropriately by writing.+DUTTA.Denies pain at this time.SR noted.Heparin gtt infusing.Fentanyl gtt discontinued for SBT.#7.5 ETT to vent.SBT 5/5 40%.Coarse breath sounds throughout with bibasilar crackles
noted.NPO.No BM.Romero draining yellow urine.Skin integrity as documented.Plan of care discussed.
[2023-07-12] MEDS: LASIX 40 MG IV ×2 (08:05→16:36)
--- NOTE | 2023-07-12 08:13 | W.PN.CD ---
Today's Communication / Plan
-
add bb when taking po
npo p midnight for cath
case management to moore entresto and sglt2-1
conitnue heparin gtt
Impression / Plan
-
Ms. Andrade is an 82-year-old female who presents for evaluation of acute worsening of shortness of breath. Upon arrival to the ED she was tachycardic and tachypneic and intubated. Initially she had a hypertensive emergency. Nitroglycerin was
started with abrupt drop of her blood pressure after intubation. Evaluation shows a chest x-ray with diffuse interstitial marking and a 'markedly elevated proBNP consistent with heart failure.
Acute heart failure with reduced ejection fraction:
-Presented with hypertensive emergency
-Echocardiogram 07/12/23 completed at the bedside. LVEF is 35 to 40% with global hypokinesis. The basal woo are best preserved.
-Will continue IV Lasix 40 mg IV twice daily. This will require intensive monitoring of her renal function and blood pressure.
-Etiology of exacerbation may be acute illness vs HTN emergency vs ischemia
-Will add GDMT as able, currently n.p.o.
-add bb today if tolerating po
-Will discuss and likely pursue cardiac catheterization once stabilized--tentatively plan for tomorrow
New cardiomyopathy: Unclear etiology, pattern may be significant for Takotsubo's, but with her risk factors cardiac catheterization will be needed during this hospitalization.
Abnormal troponin: Initial EKG with extensive fling, I suspect no big change but this will be repeated.
-Pk at 0.194, NOw with twi anteriorly
-Hep gtt considered but elevated PTT at baseline on admission
-aspirin
Hypertensive emergency:
-quickly resolved now on no therapy
-?result of respiratory failure
-will add gdmt as able
Ventilator dependent respiratory failure with both hypercapnic and hypoxic features
-on SBT trial
-Care as per tandem operator and medicine
COPD exacerbation requiring intubation:
-Agree with IV steroids
MOSES vs CKD: Cr stable at 1.2
Subjective:
-she is feeling better, communicating with writing. She has irritation of tube but no cp. She has not had cp just sob.
Case discussed with Dr. Pulido.
Critical care time spent 31 minutes.
Physical Exam
Vital Signs/Labs
Vital Signs
Temp Pulse Resp BP Pulse Ox
99.6 F 78 15 140/73 98
07/12/23 07:52 07/12/23 07:45 07/12/23 07:45 07/12/23 07:30 07/12/23 07:46
07/11/23 07/12/23 07/13/23
06:59 06:59 06:59
Actual Weight 74.8 kg
07/12/23 05:52
07/12/23 05:52
APTT 53.4 Sec (23.4-35.0) H 07/12/23 05:52
Magnesium 1.7 mg/dl (1.6-2.3) 07/12/23 05:52
Triglycerides 80 mg/dl (10-149) 07/12/23 05:52
LDL Cholesterol, Calc 51 mg/dl 07/12/23 05:52
VLDL Cholesterol, Calc 16 mg/dl (0-30) 07/12/23 05:52
HDL Cholesterol 61 mg/dl 07/12/23 05:52
07/11/23
08:53
Tnv-B-Xpuvzgfirzg Pept [id number]
LAB Results
07/11/23 07/11/23 07/11/23
08:53 13:25 19:09
Troponin I 0.063 H* 0.170 H* D 0.194 H*
07/12/23
00:03
Troponin I 0.184 H*
Physical Exam
Constitutional: No acute distress, Comfortable and Other (inutbated)
Cardiovascular: Rhythm & rate is regular, Pedal edema is absent, JVD pressure is normal, Systolic murmur absent and Diastolic murmur absent
Respiratory: Respiratory effort normal, Lungs clear to auscul., Wheeze Absent and Crackles Absent
Neuro/Psych: AO x 3
Data Reviewed
-
Date of Service: July 12, 2023
EKG: Tracing Personally Visualized and interpreted (sinus with impressive TWI anteriorly)
--- NOTE | 2023-07-12 08:30 | W.PN.INTV ---
Addendum entered and electronically signed by Darryl London MD 07/12/23 14:21:
Of note, patient follows with us in the [facility] office with Dr. Young - last appt on 11/24/2022. I will arrange for outpatient follow-up with us again.
Original Note:
Documented by User: Keith Maldonado MD, Resident 07/12/23 08:31
Assessment
-
ASSESSMENT:
Barbara is an 82-year-old female with past medical history of COPD who presented to ED on 07/11/2023 with agitation, hypoxia, tachypnea, tachycardia, and hypertensive emergency. She arrived on a nonrebreather mask and was transitioned to BiPAP but
did not tolerate and was subsequently intubated and admitted to ICU for further management.
Impression:
Presentation with severe hypoxia and hypercapnia
Requiring intubation and ventilatory support 07/11/2023.
Hypertensive emergency
HTN requiring nitroglycerine - now hypotensive with overcorrection
Resolved with Levophed
Lactic acidosis
Resoled
Elevated troponin I
Worsening
Acute heart failure with reduced ejection fraction
CONDITIONS PRIOR TO ADMISSION:
COPD
Essential hypertension
Major depressive disorder
Hypercholesterolemia
Myelodysplastic syndrome
history of breast cancer
rheumatoid arthritis
iron deficiency anemia.
Impression/Plan:
Presentation with severe hypoxia and hypercapnia
-Likely due to flash pulmonary edema in the setting of hypertensive emergency versus COPD exacerbation.
-Patient intubated, now ventilator dependent, 7.31/47/180, peak/plateau 22/15.5.
-CXR 07/11/2023 with widespread bilateral prominence interstitial markings likely due to interstitial edema/pneumonitis.
-Continue IV Lasix.
-Follow creatinine with Lasix administration.
-IV steroids
-Daily ABG.
-Monitor respiratory status and wean as needed.
-Monitor blood pressure.
Hypertensive emergency
-Improved with nitroglycerin administration, weaned off.
-Levophed per protocol given low blood pressure.
-Trend troponins
-Monitor blood pressure.
Lactic acidosis
-Likely anaerobic metabolism given severe hypoxia.
-Resolved.
-Monitor with oxygen supplementation.
Acute heart failure with reduced ejection fraction
-Echo 07/11/2023 with moderately reduced left ventricular systolic function and EF 35 - 40%.
-Continue Lasix.
-Trend troponin 0.063.
-Consider cardiac catheterization once stable per cards
-Cardiology following.
Elevated troponin I
-Worsening, likely due to cardiac stretch versus NSTEMI
-Trend
DVT prophylaxis: Lovenox
Data:
CXR 07/11/2023: Widespread bilateral prominent predominantly interstitial markings. Some of several differential diagnostic possibilities include interstitial edema and pneumonitis.
Echo 07/11/2023:
Moderately reduced left ventricular systolic function.
Left ventricular ejection fraction is 35-40% by Monroe's method and visual assessment.
Global hypokinesis the mid to apical woo with basal woo best preserved.
No significant valvular disease.
Compared to previous echo 05/11/2016, the systolic dysfunction is new.
Subjective Dataa
Subjective Data
Date of Service:
Date of Service: July 12, 2023
Objective Data
Data Reviewed
Vital Signs / I&O / Oxygen:
Vital Signs
Temp Pulse Resp BP Pulse Ox
99.6 F 83 13 140/73 97
07/12/23 07:52 07/12/23 08:21 07/12/23 08:21 07/12/23 07:30 07/12/23 08:21
Intake and Output
07/11/23 07/12/23 07/13/23
06:59 06:59 06:59
Intake Total 314.6 / 326.1 23.0 / 23.0
Output Total 3070 / 3110 70 / 70
Balance -2755.4 / -2783.9 -47.0 / -47.0
SaO2 [CPAP/PSV] 98
SaO2 [A/C] 97
SaO2 97
Labs/Micro/Reports
Lab Data
07/12/23 05:52
07/12/23 05:52
Laboratory Results
07/11/23 07/11/23 07/11/23
09:21 10:28 13:25
APTT > 200.0 H*
pH 7.20 L 7.31 L
pCO2 52 H 45 H
pO2 198 H 180 H
HCO3 20.3 L 22.7
O2 Delivery Level
07/11/23 07/12/23
23:11 05:52
APTT 56.3 H 53.4 H
pH
pCO2
pO2
HCO3
O2 Delivery Level
Microbiology
07/11/23 08:53 Nasal Swab Influenza Types A & B (TJ) - Final
Negative for Influenza A & B, NAAT
Negative results must be combined with clinical observations
and patient history.
Nucleic Acid Amplification test (NAAT)performed on the
[employer] platform.

Documented by User: Darryl London MD 07/12/23 13:51
Today's Communication / Plan
Recommendations
Extubated today
NPO pMN for LHC
GDMT as per cardiology
Start short course of steroids for suspected AECOPD
Transition nebulized bronchodilators to MDI (pt takes trelegy at home)
Patient is stable for transfer out of ICU to IVU. Given acute respiratory failure with component of COPD exacerbation, pulmonary service will continue to briefly follow along. I will offer to have her follow-up with us at [facility] post-discharge;
otherwise is pt has her own equal opportunity assistant then she can follow up with that provider.
Assessment
-
Assessment: 82-year-old F with PMhx of HTN, HLD and ?COPD who p/w SOB. 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 911 called and pt was tachypneic and hypoxic to 80s. NRB placed onto pt and pt brought here to ER. BiPAP
placed onto pt in ER withouty improvement, hence she was intubated. Pt hypertensive in ER as high as 241/199 and CXR showed b/l interstitail edema requiring nitro gtt + lasix, but BP dropped after intubation. Pt now TRX to ICU and and critical
care services consulted for further recommendations.
Impression:
#Acute hypoxic/hypercapneic respiratory failure - suspected due to HTN crisis + suspected COPD exacerbation
#Respiratory distress due to acute pulmonary edema due to HTN crisis in setting of COPD
#HTN crisis
#MOSES
#Hyperglycemia
#Transaminitis
#Elevated troponin now with carolin-lateral TWI - DDX is NSTEMI vs demand ischemia - troponin peaked at 0.194 on 07/11/2023
#Acute HFrEF
#Hx of COPD on Trelegy
Plan:
- Reduce SBP by 25% over first 24 hrs, and then can reduce further from there - goal SBP today should be 130-150
- Continue mechanical ventilation with goal SpO2 88% - 94% - pt was successfully extubated this AM to nasal cannula
- Change budesonide and DuoNebs to Advair 230mcg and Spiriva respimat 2.5mcg/act with prn DuoNebs
- Patient is wheezing today and she endorses increased mucous production/chest congestion, and based on today's physical exam and patient's subjective complaints, there is concern for an acute COPD exacerbation. Start short course of prednisone
40mg x 5 days
- Maintain MAP>65
- GDMT as per cardiology
- No need to continue trending troponin given it peaked already on 07/11/2023
- Monitor I/O, daily weight, maintain net negative fluid balance as tolerated
- Replete K>4, Mg>2
- Goal BG 140-180mg/dL
- Heparin gtt as per cardiology due to elevated troponin and concern for NSTEMI
- Obtain outpatient medical records for prior PFTs and echo
- NPO p MN for LHC
- stress ulcer ppx - n/a
- DVT ppx
Patient is stable for transfer out of ICU to IVU. Given acute respiratory failure with component of COPD exacerbation, pulmonary service will continue to briefly follow along.
Total time spent today was 55 minutes for this encounter. Time includes reviewing laboratory test/imaging results, reviewing pertinent medical records, obtaining and reviewing medical history, performing an appropriate exam, ordering medications,
tests and procedures. Time also includes documentation of this encounter, coordinating patient care and communicating with other healthcare professionals. Total time does not include separately billed tests performed on this date of service.
Data:
TTE 07-11-2023:
Moderately reduced left ventricular systolic function. Left ventricular
ejection fraction is 35-40% by Monroe's method and visual assessment.
Global hypokinesis the mid to apical woo with basal woo best preserved.
No significant valvular disease.
Compared to previous echo 05/11/2016, the systolic dysfunction is new.
Subjective Dataa
Subjective Data
Chief Complaint: Case Monitor Follow Up
Subjective:
Pt seen this AM. Awake, alert, in NAD on ventilator. BP 130/81, HR 94%, HR 91. No acute events reported from overnight.
Review of Systems
General: Other (negative unless mentioned above)
Objective Data
Physical Exam
General: Comfortable
HEENT: Normocephalic and Anicteric
Cardiovascular: S1-S2
Respiratory: Wheeze ([place] bilaterally in posterior lung hubbard upon expiration), Crackles (n), Rhonchi (n), Non-Labored Respirations, ET Tube and Other (coarse BS bilaterally)
GI: Soft, Non Distended, Non Tender, Normal Bowel Sounds and Other (Abdominal obesity)
Neurology: Awake and Alert
Skin: Warm and Dry
--- NOTE | 2023-07-12 08:31 | W.PN.HOSP.TC ---
Today's Communication/Plan
-
extubation and eventual cardiac cath
cont diuresis and replete K
Assessment / Plan
Assessment / Plan
pt is an 82 year old female
Acute respiratory distress requiring intubation and ventilator support (VDRF)--presumed due to flash pulmonary edema--apprec microsoft infrastructure consultant/consult cardiology--echo with EF 35-40% with global hypokinesis--continue diuresis--trend troponins--plan for
extubation, will need cardiac cath
Flash pulmonary edema--likely secondary to hypertensive emergency from presumed hypoxia and inability to breathe--there may be some component of a chronic obstructive pulmonary disease exacerbation due to a viral illness prior to admission--continue
IV steroids and diuresis--echo as above
Essential hypertension--with presumed hypertensive emergency--blood pressure is exceedingly low now from intubation and sedation--was placed on nitro drip--weaned off--off levophed--BP this AM 140/73
hypokalemia--replete, with ongoing diuresis
Lactic acidosis--presumed due to anaerobic metabolism--doubt sepsis--if temperature recurs we will start antibiotics but for now we will hold--resolved
Patient immunosuppressed--on Humira and Plaquenil, hydroxyurea--unknown reason--unclear if rheumatologic or hematologic reason--nevertheless, hold for now
DVT prophylaxis--Lovenox
CODE STATUS--full code
Friend at bedside
Anticipated Discharge: > 48 hours
Subjective/Interval History
-
Date of Service: July 12, 2023
pt intubated but awake and doing well on her wean
Objective Data
-
Labs:
Laboratory Results
07/11/23 07/12/23 07/12/23
23:11 05:52 08:30
WBC 8.6
Hgb 12.7
Hct 37.0
Plt Count 276
APTT 56.3 H 53.4 H
HCO3 Pending
Sodium 137
Potassium 3.7
Chloride 105
Carbon Dioxide 24
BUN 34 H
Creatinine 1.2 H
Glucose 107 H
Calcium 8.9
Total Bilirubin 0.9
AST 53 H
ALT 62 H
Alkaline Phosphatase 66
07/12/23
12:30
WBC
Hgb
Hct
Plt Count
APTT Pending
HCO3
Sodium
Potassium
Chloride
Carbon Dioxide
BUN
Creatinine
Glucose
Calcium
Total Bilirubin
AST
ALT
Alkaline Phosphatase
Vital Signs:
max temp for 24 hours
07/11/23
23:52
Temp 99.9 F
Laboratory Tests
07/11/23 07/11/23 07/11/23
08:53 13:25 19:09
Troponin I 0.063 H* 0.170 H* D 0.194 H*
07/12/23
00:03
Troponin I 0.184 H*
Vital Signs
Temp Pulse Resp BP Pulse Ox
99.6 F 83 13 140/73 97
07/12/23 07:52 07/12/23 08:21 07/12/23 08:21 07/12/23 07:30 07/12/23 08:21
I&O
07/11/23 07/12/23 07/13/23
06:59 06:59 06:59
Intake Total 314.6 / 326.1 23.0 / 23.0
Output Total 3070 / 3110 70 / 70
Balance -2755.4 / -2783.9 -47.0 / -47.0
Review of Systems
-
Unable to obtain full review of systems at this time due to: Patient Intubation
All other systems: Reviewed and negative (shakes head no to questions)
Physical Exam
-
General: Well Developed, Well Nourished, No Apparent Distress and Intubated
HEENT: Normocephalic and Atraumatic
Respiratory: Clear to Auscultation; Negative Wheezes or Rhonchi
Cardiac: Regular Rhythm and S1/S2; Negative Murmur
GI: Soft, Nontender, Nondistended and Normal Bowel Sounds
Musculoskeletal: No Clubbing, No Cyanosis and No Edema
Neuro: Awake and Alert
Psych: Calm
[2023-07-12 08:49] LABS: HCO3 25.5 mmol/L (21-28); PCO2 32 mmHg (32-35); PO2 78 mmHg (83-108); pH 7.51 (7.35-7.45)
--- NOTE | 2023-07-12 09:40 | PTCARENOTE ---
Extubated as per MD order.
[2023-07-12] MEDS: LOW STRENGTH ASPIRIN 81 MG TUBE (10:57)
[2023-07-12] MEDS: KCL 40 MEQ PO (11:04)
--- NOTE | 2023-07-12 11:34 | CM ---
CM following re: discharge planning.
Discussed in Rounds, reviewed pt's chart, met with pt.
Pt is an 82 year old female, admitted with primary dx of Acute respiratory distress requiring intubation and ventilator support (VDRF). Per Rounds,meeting, pt extubated this morning to 4L NC of O2, continue supportive care.
Pt reports she lives alone in a 2story apartment, has no immediate family, has 2 supportive friends and they do have POA. Pt reports she ambulates with a walker and a cane, has a shower chair, has no home O2 and follow up with outpatient
distribution a class lineman.
PT and OT consults requested to determine a level of care at discharge.
PCP: Jamia Fair
Pharmacy: [facility]
D/C plan: home with anticipated VN services if recommended by PT/OT.
CM will follow with discharge plan updates as hospitalization progresses
--- NOTE | 2023-07-12 12:05 | PTCARENOTE ---
Pt assessed.Speech is appropriate.Declines to get oob at this time.Wants to rest.POX 94% on 4l O2 NC.Occasional non productive cough.Romero draining yellow urine.
[2023-07-12 12:52] LABS: APTT 78.2 Sec (23.4-35.0)
[2023-07-12] MEDS: SPIRIVA RESPIMAT 2.5 MCG INH (14:49)
[2023-07-12] MEDS: DELTASONE 40 MG PO (15:45)
--- NOTE | 2023-07-12 16:25 | PTCARENOTE ---
Pt assessed.No change in assessment noted.
[2023-07-12] MEDS: HEPARIN 25000 UNITS/250 ML IV (17:37)
[2023-07-12 19:11] LABS: APTT 50.9 Sec (23.4-35.0)
[2023-07-12] MEDS: ADVAIR HFA 230/21 MCG INHALER 2 PUFF INH (19:33)
--- NOTE | 2023-07-12 21:00 | PTCARENOTE ---
Pt extubated on previous shift/OOB to chair. DUTTA 5/5, alert/oriented. Afebrile. NSR on monitor. Heparin gtt as ordered. 3L nasal cannula. Tolerating low cholesterol diet. NPO after midnight for cath in AM.
[2023-07-12] MEDS: TOPROL XL 12.5 MG PO (22:00)
[2023-07-13] VITALS (31 sets, daily range): BP systolic 92–156; BP diastolic 61–90; BMI 26.6
[2023-07-13 02:10] LABS: Hemoglobin 12.5 g/dL (12.0-16.0); Mean Corp Hgb Conc. 34.7 g/dL (33.0-37.0); Mean Corpuscular Hgb 32.9 pg (27.0-31.0); Mean Corpuscular Volume 94.7 fL (81.0-99.0); Mean Platelet Volume 10.6 fL (7.4-10.4); Platelet Count 260 10^3/uL (130-400); Red Cell Dist. Width 13.7 % (11.5-14.5); White Blood Cell Count 8.9 10^3/uL (4.8-10.8)
[2023-07-13 02:29] LABS: APTT 131.7 Sec (23.4-35.0)
[2023-07-13 02:40] LABS: Blood Urea Nitrogen 39 mg/dl (7-17); Carbon Dioxide 28 mmol/L (22-30); Chloride 101 mmol/L (98-107); Estimated Creatinine Clearance 34 ml/min; Glucose 127 mg/dl (70-99); Magnesium 1.9 mg/dl (1.6-2.3); Potassium 3.9 mmol/L (3.5-5.1); Sodium 134 mmol/L (135-145); eGFR 41.57
[2023-07-13] MEDS: ADVAIR HFA 230/21 MCG INHALER 2 PUFF INH ×2 (07:41→19:20)
[2023-07-13] MEDS: SPIRIVA RESPIMAT 2.5 MCG 2 PUFF INH (07:42)
--- NOTE | 2023-07-13 08:00 | PTCARENOTE ---
Received pt awake and alert.Speech is appropriate.+DUTTA.Denies pain at this time.SR noted.Heparin gtt infusing.O2 2l NC.Coarse breath sounds with bibasilar crackles noted.NPO.No BM.Pt using Purewick to void yellow urine.Skin integrity as
documented.Plan of care discussed.
--- NOTE | 2023-07-13 08:09 | W.PN.INTV ---
Today's Communication / Plan
Recommendations
N.p.o. for tentative left heart cath today.
Continue prednisone 40mg x 5 days (day 2).
Follow and replete electrolytes.
IVF before cath
Patient stable for transfer to IMU. Pulmonary will continue to follow.
Assessment
-
Assessment: 82-year-old F with PMhx of HTN, HLD and ?COPD who p/w SOB. She saw her PCP SHAKE FEEDER and albuterol was Rx without improvement. 911 called and pt was tachypneic and hypoxic to 80s. NRB placed onto pt and pt brought here to ER. BiPAP
placed onto pt in ER withouty improvement, hence she was intubated. Pt hypertensive in ER as high as 241/199 and CXR showed b/l interstitail edema requiring nitro gtt + lasix, but BP dropped after intubation. Pt now TRX to ICU and and critical
care services consulted for further recommendations.
Impression:
#Acute hypoxic/hypercapneic respiratory failure - suspected due to HTN crisis + suspected COPD exacerbation
#Respiratory distress due to acute pulmonary edema due to HTN crisis in setting of COPD
#HTN crisis
#MOSES vs CKD
#Hyperglycemia
#Transaminitis
#Elevated troponin now with carolin-lateral TWI - DDX is NSTEMI vs demand ischemia - troponin peaked at 0.194 on 07/11/2023
#Acute HFrEF
#Hx of COPD on Trelegy
Plan:
- Blood pressure improving, continue Lasix, metoprolol, nifedipine-goal SBP today should be <120
- Pt was successfully extubated 07/12/2023 for to nasal cannula, currently on 1.5L NC with SpO2 95%, continue to wean as tolerated. Patient is not on home O2.
- Continue Advair 230mcg and Spiriva respimat 2.5mcg/act with prn DuoNebs.
- Continue prednisone 40mg x 5 days (day 2) for suspected COPD exacerbation. Patient has no acute complaints today.
- Mild hyponatremia, follow.
- Maintain MAP>65
- GDMT as per cardiology
- No need to continue trending troponin given it peaked already on 07/11/2023
- Monitor I/O, daily weight, maintain net negative fluid balance as tolerated
- Replete K>4, Mg>2
- Goal BG 140-180mg/dL
- Heparin gtt as per cardiology due to elevated troponin and concern for NSTEMI
- Obtain outpatient medical records for prior PFTs and echo
- MOSES Vs CKD with creatinine plateaued at 1.3, Consider IV fluid before cath, follow renal function.
- NPO p MN for [facility] tentatively today, follow creatinine with IV contrast administration.
- stress ulcer ppx - n/a
- DVT ppx
Patient is stable for transfer out of ICU to IVU. Given acute respiratory failure with component of COPD exacerbation, pulmonary service will continue to briefly follow along.
Data:
TTE 07-11-2023:
Moderately reduced left ventricular systolic function. Left ventricular
ejection fraction is 35-40% by Monroe's method and visual assessment.
Global hypokinesis the mid to apical woo with basal woo best preserved.
No significant valvular disease.
Compared to previous echo 05/11/2016, the systolic dysfunction is new.
Subjective Dataa
Subjective Data
Date of Service:
Date of Service: July 13, 2023
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
Subjective:
Patient seen and evaluated this morning lying in bed with HR 70, SpO2 95% on 1.5L NC, RR 21, BP 145/81. No major events reported overnight. Patient NPO awaiting [facility] today.
Review of Systems
General: Fever (n), Chills (n) and Rash (n)
Cardiopulmonary: Dyspnea (n), Cough (n), Wheezing (Mild expiratory wheezing on the right side), Chest Pain (n) and Edema (n)
GI: Abdominal Pain (n), Nausea (n) and Vomiting (n)
Neuro: Headache (n) and Weakness (n)
Objective Data
Data Reviewed
Vital Signs / I&O / Oxygen:
Vital Signs
Temp Pulse Resp BP Pulse Ox
98.5 F 97 21 148/87 94
07/13/23 03:42 07/13/23 07:45 07/13/23 07:45 07/13/23 07:00 07/13/23 07:45
Intake and Output
07/12/23 07/13/23 07/14/23
06:59 06:59 06:59
Intake Total 314.6 / 326.1 1089.5 / 1089.5
Output Total 3070 / 3110 2720 / 2720
Balance -2755.4 / -2783.9 -1630.5 / -1630.5
SaO2 [CPAP/PSV] 98
SaO2 [A/C] 97
SaO2 94
Nasal Cannula flow liters per 3
minute
Physical Exam
General: Comfortable
HEENT: Normocephalic and Anicteric
Cardiovascular: S1-S2
Respiratory: Wheeze (mild posterior right lung hubbard upon expiration), Crackles (n), Rhonchi (n) and Non-Labored Respirations
GI: Soft, Non Distended, Non Tender, Normal Bowel Sounds and Other (Abdominal obesity)
Neurology: Awake, Alert and AO x 3
Skin: Warm, Dry and Rash (n)
Labs/Micro/Reports
Lab Data
07/13/23 01:58
07/13/23 06:00
Laboratory Results
07/12/23 07/12/23 07/12/23
08:30 12:32 18:54
APTT 78.2 H 50.9 H
pH 7.51 H
pCO2 32
pO2 78 L
HCO3 25.5
O2 Delivery Level
07/13/23
01:58
APTT 131.7 H
pH
pCO2
pO2
HCO3
O2 Delivery Level
Microbiology
07/11/23 13:25 Blood/Venous Blood Culture - Preliminary
No Growth in 24 hours- Final report to follow
07/11/23 08:53 Blood/Venous Blood Culture - Preliminary
No Growth in 24 hours- Final report to follow
07/11/23 08:53 Nasal Swab Influenza Types A & B (TJ) - Final
Negative for Influenza A & B, NAAT
Negative results must be combined with clinical observations
and patient history.
Nucleic Acid Amplification test (NAAT)performed on the
[employer] platform.
--- NOTE | 2023-07-13 08:40 | W.PN.HOSP.TC ---
Today's Communication/Plan
-
cardiac cath today
Assessment / Plan
Assessment / Plan
pt is an 82 year old female
Acute respiratory distress requiring intubation and ventilator support (VDRF)--extubated 07/11--presumed due to flash pulmonary edema--apprec outreach counselor/consult cardiology--echo with EF 35-40% with global hypokinesis--continue diuresis--trend
troponins--cardiac cath 07/12
Flash pulmonary edema--likely secondary to hypertensive emergency from presumed hypoxia and inability to breathe--there may be some component of a chronic obstructive pulmonary disease exacerbation due to a viral illness prior to admission--continue
PO steroids and diuresis--echo as above
Essential hypertension--with presumed hypertensive emergency--blood pressure is exceedingly low now from intubation and sedation--was placed on nitro drip--weaned off--off levophed--BP stabilized
hypokalemia--replete, with ongoing diuresis
Lactic acidosis--resolved--presumed due to anaerobic metabolism--doubt sepsis
RA--Patient immunosuppressed--on Humira and Plaquenil, hydroxyurea-- hold for now
DVT prophylaxis--Lovenox
CODE STATUS--full code
Anticipated Discharge: > 48 hours
Subjective/Interval History
-
Date of Service: July 13, 2023
pt wheezing
waiting for cardiac cath
Objective Data
-
Labs:
Laboratory Results
07/13/23 07/13/23 07/13/23
01:58 06:00 10:00
WBC 8.9
Hgb 12.5
Hct 36.0 L
Plt Count 260
APTT 131.7 H Pending
Sodium 134 L Cancelled
Potassium 3.9 Cancelled
Chloride 101 Cancelled
Carbon Dioxide 28 Cancelled
BUN 39 H Cancelled
Creatinine 1.3 H Cancelled
Glucose 127 H Cancelled
Calcium 9.0 Cancelled
Vital Signs:
max temp for 24 hours
07/12/23
15:39
Temp 100.3 F
Vital Signs
Temp Pulse Resp BP Pulse Ox
98.4 F 97 21 148/87 94
07/13/23 08:00 07/13/23 07:45 07/13/23 07:45 07/13/23 07:00 07/13/23 07:45
I&O
07/12/23 07/13/23 07/14/23
06:59 06:59 06:59
Intake Total 314.6 / 326.1 1089.5 / 1089.5
Output Total 3070 / 3110 2720 / 2720
Balance -2755.4 / -2783.9 -1630.5 / -1630.5
Review of Systems
-
All other systems: Reviewed and negative
Respiratory: Reports Wheezing
Physical Exam
-
General: Well Developed, Well Nourished and No Apparent Distress
HEENT: Normocephalic and Atraumatic
Respiratory: Wheezes
Cardiac: Regular Rhythm and S1/S2; Negative Murmur
GI: Soft, Nontender, Nondistended and Normal Bowel Sounds
Musculoskeletal: No Clubbing, No Cyanosis and No Edema
Neuro: Awake and Alert
Psych: Calm
[2023-07-13] MEDS: DELTASONE 40 MG PO (08:41)
[2023-07-13] MEDS: PROCARDIA XL (EXTENDED RELEASE) 30 MG PO (08:41)
[2023-07-13] MEDS: COZAAR 25 MG PO (08:41)
[2023-07-13] MEDS: ASPIR LOW (ENTERIC COATED) 81 MG PO (08:41)
[2023-07-13] MEDS: LASIX 40 MG IV ×2 (08:42→16:05)
[2023-07-13 10:25] LABS: APTT 78.9 Sec (23.4-35.0)
--- NOTE | 2023-07-13 10:40 | PTCARENOTE ---
Report given to Premix Concrete Batcher RN.
--- NOTE | 2023-07-13 11:11 | PTCARENOTE ---
Transported to Creative Assistant via bed with Creative Assistant RN.
--- NOTE | 2023-07-13 11:49 | W.PN.CD ---
Today's Communication / Plan
-
L/R cardiac catheterization today.
Titrate diuretics based on findings.
Uptitrate GDMT as hemodynamics will tolerate.
Start dapagliflozin. Case management consult.
Acute BP control with afterload reduction (nicardipine or nitroprusside).
Impression / Plan
-
Impression/Plan: 82-year-old female admitted with new cardiomyopathy and hypertensive crisis leading to acute HFrEF with severe pulmonary edema, complicated by hypotension with IV nitroglycerin.
#Acute heart failure with reduced ejection fraction:
-Presented with hypertensive emergency with hemodynamic collapse with nitroglycerin.
-Will continue furosemide 40 mg IV twice daily. This will require intensive monitoring of her renal function and blood pressure.
-Etiology of exacerbation may be acute illness vs HTN emergency vs ischemia.
-Cardiac catheterization today to assess filling pressures, coronary anatomy.
-Started on metoprolol and losartan.
#Systolic Cardiomyopathy:
-New diagnosis.
-LVEF is 35 to 40% with global hypokinesis. The basal woo are best preserved.
-Unclear etiology, pattern may be significant for Takotsubo's, but with her risk factors cardiac catheterization will be needed during this hospitalization.
-Cardiac catheterization today.
-GDMT as noted above.
#Abnormal troponin:
-Troponin peaked at 0.194. Seems inconsistent with ACS.
-EKG shows T wave inversions anteriorly.
-Aspirin. No role for heparin at this time.
-Cardiac catheterization.
#Hypertensive emergency:
-Acute, resolved.
-BP's elevated, but not severe.
-Monitor response to GDMT. Currently on metoprolol, losartan, nifedipine.
-Acute BP control with nicardipine or nitroprusside (afterload reduction) rather than nitro (preload reduction) if needed.
#COPD exacerbation
-Required intubation. Now extubated.
-Agree with IV steroids.
#MOSES
-New diagnosis.
-Creatinine 1.3 today.
-Filling pressures today at cath.
Subjective/Interval History:
Extubated.
Weight down 4+ kg from admission.
SaO2 91% on 2LNC.
DATA:
TTE, 07/11/2023:
CONCLUSIONS
Moderately reduced left ventricular systolic function. Left ventricular
ejection fraction is 35-40% by Monroe's method and visual assessment.
Global hypokinesis the mid to apical woo with basal woo best preserved.
No significant valvular disease.
Compared to previous echo 05/11/2016, the systolic dysfunction is new.
Physical Exam
Vital Signs/Labs
Vital Signs
Temp Pulse Resp BP Pulse Ox
36.8 C 81 18 156/88 91
07/13/23 11:00 07/13/23 11:15 07/13/23 11:15 07/13/23 11:00 07/13/23 11:15
07/11/23 07/12/23 07/13/23
11:59 11:59 11:59
Actual Weight 77.7 kg 74.8 kg 70.3 kg
07/13/23 01:58
07/13/23 06:00
APTT 78.9 Sec (23.4-35.0) H 07/13/23 10:05
Magnesium 1.9 mg/dl (1.6-2.3) 07/13/23 01:58
Triglycerides 80 mg/dl (10-149) 07/12/23 05:52
LDL Cholesterol, Calc 51 mg/dl 07/12/23 05:52
VLDL Cholesterol, Calc 16 mg/dl (0-30) 07/12/23 05:52
HDL Cholesterol 61 mg/dl 07/12/23 05:52
07/11/23
08:53
[id number] Pept [id number]
LAB Results
07/11/23 07/11/23 07/11/23
08:53 13:25 19:09
Troponin I 0.063 H* 0.170 H* D 0.194 H*
07/12/23
00:03
Troponin I 0.184 H*
Physical Exam
Constitutional: No acute distress and Comfortable
EENT: Anicteric and Moist mucous membranes
Cardiovascular: Rhythm & rate is regular, JVD pressure is normal, Pedal edema present, S1S2 is normal and Murmur/rub/gallop absent
Respiratory: Respiratory effort normal, Lungs clear to auscul., Wheeze Absent, Crackles Absent and Rhonchi Absent
GI: Soft, Distention absent, Flat, Non tender and Normal bowel sounds
Neuro/Psych: AO x 3
Data Reviewed
-
Date of Service: July 13, 2023
Medical Decision Making: Reviewed Test Results, Independent Historian Assessment and Test Interpretation
EKG: Tracing Personally Visualized and interpreted
Echo: Tracing Personally Visualized and interpreted and Report Reviewed by me
X-Ray/CT/US/MRI/NUC/PET: Image Personally Visualized and interpreted and Report Reviewed by me
Medical Tests (PFT, Pathology etc): Image Personally Visualized and interpreted and Report Reviewed by me
Labs: Labs Reviewed by me
--- NOTE | 2023-07-13 12:17 | PTCARENOTE ---
Report given to IVU RN.
--- NOTE | 2023-07-13 12:19 | PTCARENOTE ---
Pt belongings including upper and lower dentures sent to IVU.
--- NOTE | 2023-07-13 12:45 | ITS.CL.CATH ---
Rn Case Manager Hospice - Catheterization
Cardiac Catheterization
Procedure Report:
CARDIAC CATHETERIZATION REPORT
Date of Procedure: 07/13/2023
Referring: Marisol Jc M.D.
Indication: New cardiomyopathy, heart failure with reduced ejection fraction.
PROCEDURE:
1. Right heart catheterization.
2. Left heart catheterization.
3. Coronary angiography.
ACCESS:
6 Congolese right radial artery.
5 Congolese right antecubital vein using a modified Seldinger technique under ultrasound guidance.
CATHETERS:
1. 5 Congolese balloon wedge.
2. 5 Congolese JL 3.5.
3. 5 Congolese JR4.
4. 5 Congolese angled pigtail.
5. 4 Congolese angled pigtail.
HEMODYNAMIC DATA
Weight (kg): 69.9
AO (s/d/x mmHg): 138/77/103
LV (s/x mmHg): 146/18
PCWP (a/v/x mmHg):
PA (s/d/x mmHg): 51/27/35
RV (s/x mmHg): 51/10
RA (a/v/x mmHg): 15/
SVC SvO2 (%): 61.4
PA SvO2 (%): 60.5
SaO2 (%): 87.8
Hbg (g/dL): 14.3
CO (L/min): 3.17
CI (L/min/m2): 1.80
TPG (mmHg): 11
PVR (Casas Units): 3.47
SVR (dynes*seconds*cm^-5): 2297
AVO2 Diff (Volume %): 5.31
AV gradient (x, mmHg): None.
AV area (cm2): Normal.
LEFT VENTRICULOGRAPHY: Not performed.
CORONARY ANGIOGRAPHY
Dominance: Right.
Left Main: Normal size, bifurcating vessel. There is no coronary artery disease.
LAD: Normal size vessel giving rise to several small diagonals and a large master septal which runs parallel to the left anterior descending artery within the interventricular septum. There is no coronary artery disease.
Ramus: Congenitally absent.
Circumflex: Normal size, nondominant vessel that is essentially a single obtuse marginal supplying the majority of the inferolateral wall. There is no coronary artery disease.
RCA: Large size, dominant vessel with a large posterolateral arcade. There is some mild tapering in the proximal vessel but no significant coronary artery disease.
INTERVENTIONS
None.
Closure Device: Vascular band for the right radial artery, manual pressure for the right antecubital vein.
Radiation dose (mGy): 551.88
DAP (cm2.Gy): 54.6246
Fluoroscopy time (minutes): 13.4
Sedation time (minutes): 8
CONCLUSIONS:
1. Right dominant circulation with mild tapering/luminal irregularities in the proximal RCA but no significant coronary artery disease.
2. Moderate to severely elevated filling pressures (LVEDP = 18 mmHg, PCWP = 24 mmHg at 69.9 kg).
3. Borderline low normal/mildly reduced systolic function (cardiac index 1.80 L/min/m�, a VO2 difference 5.31%).
4. Severe right subclavian tortuosity inhibiting the performance of a left ventriculogram. Based on echocardiographic findings in the absence of coronary disease, this is consistent with Takotsubo cardiomyopathy.
RECOMMENDATIONS:
1. Expectant management after cardiac catheterization via right radial/antecubital approach.
2. Limited weight bearing on the right wrist for one week.
3. Guideline directed medical therapy as hemodynamics tolerate.
4. Would continue diuresis cautiously as filling pressures are probably reasonable and she is clearly preload dependent as demonstrated by hemodynamic collapse with nitroglycerin in the acute setting.
5. Any further cardiac catheterization should be performed either via the left radial or femoral approach given the severe right subclavian tortuosity and spasm.
Copy to: Marisol Jc M.D., Jessica Fair M.D., Ronald Young M.D.
Wes Graves DO, FACC, FACP
--- NOTE | 2023-07-13 13:30 | PTCARENOTE ---
Pt received post cath awake, alert and oriented. 02 on at 2LNC, sat 94%. Pt denies any pain or sob. Right rad site and brachial site WNL. TR band removed at ordered at 1600. Pt assisted oob to the bathroom, gait steady with the walker. Pt presently
tolerating oob in the chair with no c/o.
[2023-07-13] MEDS: HYDREA 1000 MG PO (14:28)
--- NOTE | 2023-07-13 15:11 | CM ---
Reviewed chart. Ms. Bolivar was transferred to IVU. Met with Ms. Bolivar to review discharge plans. She states prior to admission she resides alone in a second floor walk-up apartment. She states prior to admission she ambulates with a walker. She has
a walker, single point cane and shower chair at home. She states she has a prescription plan and uses [facility]. Telephone call to [facility],([phone]) to check on co-pay for Jardiance, Farxiga and Entresto. Jardiance 10 mg po daily
co-pay would be $120.34 a month, Farxiga 10 mg po daily would be $114.66 a month and Entresto 24/26 mg bid would be $135.48 a month. She does not have a deductible and this would be the moore until she gets in the coverage gap. Will need to see
her current functional level to see if she will have any skilled care needs. She have VNA in the distant past and she has never been to SNF.Rehab. Medical work-up in progress. The discharge plan is to return home with [facility]NA versus SNF/ Rehab. if
indicated when medically stable.
[2023-07-13] MEDS: FLUSH (NSS) 2 FLUSH IV (16:06)
--- NOTE | 2023-07-13 21:07 | PTCARENOTE ---
Addendum entered by Héctor Piper RN 07/13/23 21:27:
R brachial, not L
Original Note:
Pt received start of shift, HR SR. R radial cath site dressing CDI + surrounding area soft, no hematoma. L brachial cath site dressing CDI. R Hand INT D/C due to leaking and pt request. Pt ambulating with walker in room. NC 2L. Pt denies any CP, SOB
at rest, or lightheadedness/dizziness. Informed to notify RN if any changes, call [email or web address] within reach.
[2023-07-13] MEDS: TOPROL XL 12.5 MG PO (22:05)
[2023-07-14] VITALS (9 sets, daily range): BP systolic 106–142; BP diastolic 62–90; PULSE 81–94; O2SAT 95; BMI 27.1
[2023-07-14 04:16] LABS: Hematocrit 36.4 % (37.0-47.0); Hemoglobin 12.7 g/dL (12.0-16.0); Mean Corp Hgb Conc. 34.9 g/dL (33.0-37.0); Mean Corpuscular Hgb 32.7 pg (27.0-31.0); Mean Corpuscular Volume 93.8 fL (81.0-99.0); Mean Platelet Volume 10.5 fL (7.4-10.4); Platelet Count 269 10^3/uL (130-400); Red Blood Cell Count 3.88 10^6/uL (4.20-5.40); Red Cell Dist. Width 13.4 % (11.5-14.5); White Blood Cell Count 8.1 10^3/uL (4.8-10.8)
[2023-07-14 04:44] LABS: Blood Urea Nitrogen 46 mg/dl (7-17); Calcium 8.8 mg/dl (8.4-10.2); Carbon Dioxide 29 mmol/L (22-30); Chloride 100 mmol/L (98-107); Estimated Creatinine Clearance 28 ml/min; Glucose 94 mg/dl (70-99); Magnesium 2.1 mg/dl (1.6-2.3); Potassium 3.9 mmol/L (3.5-5.1); Sodium 132 mmol/L (135-145); eGFR 38.03
--- NOTE | 2023-07-14 07:40 | W.PN.CD ---
Today's Communication / Plan
-
PFT's to evaluate for progression of her pulmonary disease.
CT Chest.
Continue diuretics, but monitor renal function.
She may need home O2.
Impression / Plan
-
Impression/Plan: 82-year-old female admitted with presumably Takotsubo cardiomyopathy and hypertensive crisis leading to acute HFrEF with severe pulmonary edema, complicated by hypotension with IV nitroglycerin.
#Hypoxic Respiratory Failure
-Multifactorial. HFrEF and COPD/ILD. Filling pressures on cath were elevated but do not explain persistent hypoxia.
-CXR shows prominent interstitial markings, new from October 2022.
-Continue diuresis, but I am not sure this will liberate her from oxygen.
-CT chest. Check PFT's to evalute for functional progression of her underlying pulmonary disease.
#Acute heart failure with reduced ejection fraction:
-Presented with hypertensive emergency with hemodynamic collapse with nitroglycerin.
-Etiology of exacerbation may be acute illness vs HTN emergency.
-Continue metoprolol and losartan.
#Takotsubo Cardiomyopathy:
-Presumptive diagnosis as LV gram could not be performed due to severe right subclavia artery tortuosity/spasm.
-LVEF is 35 to 40% with normal basal woo but otherwise global hypokinesis.
-Cardiac catheterization revealed moderately to severely elevated pressures with no CAD. LV gram abandoned as noted.
-Continue diuresis.
-GDMT as noted above.
#Abnormal troponin:
-Troponin peaked at 0.194. Seems inconsistent with ACS.
-EKG shows T wave inversions anteriorly.
-Aspirin. No role for heparin at this time.
-Cardiac catheterization.
#Hypertensive emergency:
-Acute, resolved.
-BP's elevated, but not severe.
-Monitor response to GDMT. Currently on metoprolol, losartan, nifedipine.
-Acute BP control with nicardipine or nitroprusside (afterload reduction) rather than nitro (preload reduction) if needed.
#COPD exacerbation
-Moderate/severe on PFT's from August 2022.
-Required intubation. Now extubated.
-Agree with IV steroids.
#MOSES
-New diagnosis.
-Creatinine 1.4 today.
-Evidence of volume overload on catheterization.
Subjective/Interval History:
Catheterization shows no CAD, moderately to severely elevated filling pressures.
There is also moderate pulmonary hypertension, probably group III (COPD/chronic hypoxia).
Creatinine now 1.4 (1.2 on admission).
SaO2 93% on 2LNC.
DATA:
Cardiac Catheterization, 07/13/2023:
CONCLUSIONS:
1. Right dominant circulation with mild tapering/luminal irregularities in the proximal RCA but no significant coronary artery disease.
2. Moderate to severely elevated filling pressures (LVEDP = 18 mmHg, PCWP = 24 mmHg at 69.9 kg).
3. Borderline low normal/mildly reduced systolic function (cardiac index 1.80 L/min/m�, a VO2 difference 5.31%).
4. Severe right subclavian tortuosity inhibiting the performance of a left ventriculogram. Based on echocardiographic findings in the absence of coronary disease, this is consistent with Takotsubo cardiomyopathy.
TTE, 07/11/2023:
CONCLUSIONS
Moderately reduced left ventricular systolic function. Left ventricular
ejection fraction is 35-40% by Monroe's method and visual assessment.
Global hypokinesis the mid to apical woo with basal woo best preserved.
No significant valvular disease.
Compared to previous echo 05/11/2016, the systolic dysfunction is new.
CXR, 07/11/2023:
IMPRESSION:
Endotracheal tube with tip in trachea above the nicol.
No pneumothorax.
Bilateral widespread bilateral prominent interstitial markings again seen.
Physical Exam
Vital Signs/Labs
Vital Signs
Temp Pulse Resp BP Pulse Ox
36.4 C 76 20 106/62 94
07/14/23 03:37 07/14/23 03:37 07/14/23 03:37 07/14/23 03:37 07/14/23 03:37
07/12/23 07/13/23 07/14/23
11:59 11:59 11:59
Actual Weight 74.8 kg 70.3 kg
07/14/23 03:45
07/14/23 03:45
APTT 78.9 Sec (23.4-35.0) H 07/13/23 10:05
Magnesium 2.1 mg/dl (1.6-2.3) 07/14/23 03:45
Triglycerides 80 mg/dl (10-149) 07/12/23 05:52
LDL Cholesterol, Calc 51 mg/dl 07/12/23 05:52
VLDL Cholesterol, Calc 16 mg/dl (0-30) 07/12/23 05:52
HDL Cholesterol 61 mg/dl 07/12/23 05:52
07/11/23
08:53
Ros-R-Pcxlothkhxl Pept [id number]
LAB Results
07/11/23 07/11/23 07/11/23
08:53 13:25 19:09
Troponin I 0.063 H* 0.170 H* D 0.194 H*
07/12/23
00:03
Troponin I 0.184 H*
Physical Exam
Constitutional: No acute distress and Comfortable
EENT: Anicteric and Moist mucous membranes
Cardiovascular: Rhythm & rate is regular, Pedal edema is absent, JVD pressure is normal, S1S2 is normal and Murmur/rub/gallop absent
Respiratory: Respiratory effort normal, Wheeze Present and Crackles Present (Coarse, inspiratory/expiratory in bilateral mid/lower lung hubbard.)
GI: Soft, Distention absent, Flat, Non tender and Normal bowel sounds
Neuro/Psych: AO x 3
Other: Cath Site (Right radial/antecubital access sites are C/D/I.)
Data Reviewed
-
Date of Service: July 14, 2023
Medical Decision Making: Reviewed Test Results, Independent Historian Assessment and Test Interpretation
EKG: Tracing Personally Visualized and interpreted and Report Reviewed by me
Echo: Tracing Personally Visualized and interpreted and Report Reviewed by me
X-Ray/CT/US/MRI/NUC/PET: Image Personally Visualized and interpreted, Report Reviewed by me and Discussed with Patient
Medical Tests (PFT, Pathology etc): Image Personally Visualized and interpreted, Report Reviewed by me and Discussed with Patient
Labs: Labs Reviewed by me
[2023-07-14] MEDS: DELTASONE 40 MG PO (07:46)
[2023-07-14] MEDS: ASPIR LOW (ENTERIC COATED) 81 MG PO (07:46)
[2023-07-14] MEDS: COZAAR 25 MG PO (07:47)
[2023-07-14] MEDS: LASIX 40 MG IV ×2 (07:47→15:47)
[2023-07-14] MEDS: PROCARDIA XL (EXTENDED RELEASE) 30 MG PO (07:47)
[2023-07-14] MEDS: HYDREA 1000 MG PO (07:55)
[2023-07-14] MEDS: SPIRIVA RESPIMAT 2.5 MCG 2 PUFF INH (08:12)
[2023-07-14] MEDS: ADVAIR HFA 230/21 MCG INHALER 2 PUFF INH ×2 (08:12→19:34)
--- NOTE | 2023-07-14 09:07 | PTCARENOTE ---
Assumed care of pt from night RN. Pt received awake and alert, Ox3. VSS CM shows 70's, POX 93% on 2 liters. Right radial and brachial sites CDI with good CMS throughout. She denies any pain or discomfort at this time. Scheduled for CT of chest
and PFT's today.
--- NOTE | 2023-07-14 10:26 | PTCARENOTE ---
Pt for CT of chest followed by PFT's.
--- NOTE | 2023-07-14 10:37 | W.PN.HOSP.TC ---
Today's Communication/Plan
-
cont diuresis
pulm w/u
Assessment / Plan
Assessment / Plan
pt is an 82 year old female
Acute respiratory distress requiring intubation and ventilator support (VDRF)--extubated 07/11--presumed due to flash pulmonary edema--apprec carpenter helper maintenance/consult cardiology--echo with EF 35-40% with global hypokinesis, cath c/w Takotsubo's--continue
diuresis
Flash pulmonary edema--likely secondary to hypertensive emergency from presumed hypoxia and inability to breathe--there may be some component of a chronic obstructive pulmonary disease exacerbation due to a viral illness prior to admission--continue
PO steroids and diuresis--echo as above getting chest CT, PFTs, and assessing for home O2
Essential hypertension--with presumed hypertensive emergency--blood pressure was low from intubation and sedation--was placed on nitro drip--weaned off--off levophed--BP stabilized
hypokalemia--replete, with ongoing diuresis
Lactic acidosis--resolved--presumed due to anaerobic metabolism--doubt sepsis
RA--Patient immunosuppressed--on Humira and Plaquenil, hydroxyurea-- hold for now
DVT prophylaxis--Lovenox
CODE STATUS--full code
Anticipated Discharge: 24 - 48 hours
Subjective/Interval History
-
Date of Service: July 14, 2023
pt thinks home today after all her studies
Objective Data
-
Labs:
Laboratory Results
07/14/23
03:45
WBC 8.1
Hgb 12.7
Hct 36.4 L
Plt Count 269
Sodium 132 L
Potassium 3.9
Chloride 100
Carbon Dioxide 29
BUN 46 H
Creatinine 1.4 H
Glucose 94
Calcium 8.8
Vital Signs:
max temp for 24 hours
07/13/23
18:51
Temp 98.6 F
Vital Signs
Temp Pulse Resp BP Pulse Ox
97.8 F 81 16 142/75 93
07/14/23 07:40 07/14/23 08:16 07/14/23 08:16 07/14/23 07:42 07/14/23 08:55
I&O
07/13/23 07/14/23 07/15/23
06:59 06:59 06:59
Intake Total 1089.5 / 1101.0 297.5 / 297.5
Output Total 2720 / 2720 500 / 500
Balance -1630.5 / -1619.0 -202.5 / -202.5
Review of Systems
-
All other systems: Reviewed and negative
Physical Exam
-
General: Well Developed, Well Nourished and No Apparent Distress
HEENT: Normocephalic, Atraumatic and Oxygen
Respiratory: Decreased Breath Sounds (at bases bilaterally)
Cardiac: Regular Rhythm and S1/S2; Negative Murmur
GI: Soft, Nontender, Nondistended and Normal Bowel Sounds
Musculoskeletal: No Clubbing, No Cyanosis and No Edema
Neuro: Awake and Alert
Psych: Calm
--- NOTE | 2023-07-14 12:08 | W.PN.PUL3 ---
Today's Communication / Plan
-
Continue current regimen
Prednisone taper
Outpatient pulmonary follow-up
Sign off.
Assessment
-
82-year-old F with PMhx of HTN, HLD and ?COPD who p/w SOB. She saw her PCP DOCUMENT COORDINATOR and albuterol was Rx without improvement. 911 called and pt was tachypneic and hypoxic to 80s. NRB placed onto pt and pt brought here to ER. BiPAP placed onto pt
in ER withouty improvement, hence she was intubated. Pt hypertensive in ER as high as 241/199 and CXR showed b/l interstitail edema requiring nitro gtt + lasix, but BP dropped after intubation. Pt now TRX to ICU and and critical care services
consulted for further recommendations.
Transferred to floors 07/12/2024.
Pulmonary following for hypoxemia and acute exacerbation of COPD.
Impression:
#Acute hypoxic/hypercapneic respiratory failure - suspected due to HTN crisis + suspected COPD exacerbation
Pt was successfully extubated 07/12/2023
#Respiratory distress due to acute pulmonary edema due to HTN crisis in setting of COPD
#HTN crisis
#MOSES vs CKD
#Hyperglycemia
#Transaminitis
#Elevated troponin now with carolin-lateral TWI - DDX is NSTEMI vs demand ischemia - troponin peaked at 0.194 on 07/11/2023
#Acute HFrEF
#Hx of COPD on Trelegy
Plan recommendations:
COPD: Pulmonary function testing 07/14/2023: Moderate airflow obstruction suggestion of air trapping. Severely decreased diffusion capacity at 27%.
Chest CT 07/14/2023:Reviewed, showed moderate centrilobular emphysema. Minor localized groundglass opacity and interstitial thickening on the left lower lobe. Atelectasis versus scarring. Stable pulmonary nodules.
No suspicious lung nodules.
-
Clinically improved from the pulmonary perspective.
Emphysema may explain component of hypoxemia as well.
Continue inhalers Advair/Spiriva.
Continue as needed DuoNebs
Prednisone taper for the next several days.
Not significantly bronchospastic on exam.
-
Continue oxygen supplementation to maintain pulse ox above 90%.
Oxygen has been weaned off.
Physical therapy as tolerated
Occupational Therapy as tolerated
Incentive spirometry
-
Continue with cardiac management
-
Outpatient pulmonary follow-up with Dr. Young in the next 2 to 3 weeks.
No additional recommendations
Sign off
Subjective Data
-
Date of Service:
Date of Service: July 14, 2023
Objective Data
Data Reviewed
Vital Signs / I&O / Oxygen:
Vital Signs
Temp Pulse Resp BP Pulse Ox
97.8 F 81 16 142/75 93
07/14/23 07:40 07/14/23 08:16 07/14/23 08:16 07/14/23 07:42 07/14/23 08:55
Intake and Output
07/13/23 07/14/23 07/15/23
06:59 06:59 06:59
Intake Total 1089.5 / 1101.0 297.5 / 297.5
Output Total 2720 / 2720 500 / 500
Balance -1630.5 / -1619.0 -202.5 / -202.5
SaO2 [CPAP/PSV] 98
SaO2 [A/C] 97
SaO2 93
Nasal Cannula flow liters per 2
minute
Labs/Micro/Reports
Lab Data
07/14/23 03:45
07/14/23 03:45
Microbiology
07/11/23 08:53 Blood/Venous Blood Culture - Preliminary
No Growth in 72 hours- Final report to follow
07/11/23 13:25 Blood/Venous Blood Culture - Preliminary
No Growth in 48 hours- Final report to follow
07/11/23 08:53 Nasal Swab Influenza Types A & B (TJ) - Final
Negative for Influenza A & B, NAAT
Negative results must be combined with clinical observations
and patient history.
Nucleic Acid Amplification test (NAAT)performed on the
[employer] platform.
--- NOTE | 2023-07-14 12:44 | CM ---
Reviewed chart. Met with with Ms. Bolivar to review discharge plans. We reviewed [facility]. She is agreeable to [facility]. She has selected [facility]. Telephone call to [facility] to make the referral. Referral sent. We also
reviewed co-pays for Jardiance 10 mg po daily is $120.34 a month, Farxiga 10 mg po daily is $114.66 a month and Entresto bid is $135.48. At this time she feels they are cost prohibited. Discussed the possibility of home 02. Currently she
does not qualify for Home 02.. Medical work-up in progress. The discharge plan is to return home with [facility] when medically stable.
--- NOTE | 2023-07-14 20:39 | PTCARENOTE ---
Pt received at start of shift, HR SR. Pt resting in bed, on RA. Pt reports no SOB, only slight MCLEAN. Pt appears excited at prospect of going home tomorrow. educated pt on plan of care, pt states no questions at this time. Pt denies any CP,
lightheadedness, or dizziness. Informed to notify RN if any changes, call [email or web address] within reach.
[2023-07-14] MEDS: TOPROL XL 12.5 MG PO (22:45)
[2023-07-15 04:32] VITALS: BP 124/66
[2023-07-15 04:49] VITALS: BMI 27.0
[2023-07-15 05:00] LABS: Hematocrit 36.1 % (37.0-47.0); Hemoglobin 12.5 g/dL (12.0-16.0); Mean Corp Hgb Conc. 34.6 g/dL (33.0-37.0); Mean Corpuscular Hgb 32.4 pg (27.0-31.0); Mean Corpuscular Volume 93.5 fL (81.0-99.0); Mean Platelet Volume 10.4 fL (7.4-10.4); Platelet Count 297 10^3/uL (130-400); Red Blood Cell Count 3.86 10^6/uL (4.20-5.40); Red Cell Dist. Width 13.1 % (11.5-14.5); White Blood Cell Count 6.9 10^3/uL (4.8-10.8)
[2023-07-15 05:30] LABS: Blood Urea Nitrogen 50 mg/dl (7-17); Calcium 9.6 mg/dl (8.4-10.2); Carbon Dioxide 27 mmol/L (22-30); Chloride 97 mmol/L (98-107); Estimated Creatinine Clearance 33 ml/min; Glucose 97 mg/dl (70-99); Potassium 3.4 mmol/L (3.5-5.1); Sodium 132 mmol/L (135-145); eGFR 41.57
[2023-07-15 07:12] VITALS: BP 139/65
--- NOTE | 2023-07-15 07:42 | W.PN.CD ---
Today's Communication / Plan
-
She is recovering nicely.
Change furosemide to 40 mg PO daily.
Replace potassium with 40 mEq now, start 20 mEq daily.
Start dapagliflozin 10 mg daily. Case management consult.
I suspect her renal dysfunction is somewhat chronic, but this diagnosis will not be confirmed until her renal function is retested in 3 months.
Ambulatory oxygen saturation to reassess needs for home O2.
Repeat outpatient echo in [address] abdomen with IV and PO contrast.
Assuming we can sort out her oxygen requirement, she is otherwise stable for outpatient cardiology follow up.
Discharge planning.
Impression / Plan
-
Impression/Plan: 82-year-old female admitted with presumably Takotsubo cardiomyopathy and hypertensive crisis leading to acute HFrEF with severe pulmonary edema, complicated by hypotension with IV nitroglycerin.
#Hypoxic Respiratory Failure
-Multifactorial. HFrEF and COPD/ILD. Filling pressures on cath were elevated but do not explain persistent hypoxia.
-CXR shows prominent interstitial markings, new from October 2022.
-Continue diuresis, but I am not sure this will liberate her from oxygen.
-CT chest shows moderate emphysematous changes, no evidence of pulmonary edema or PNA. PFT's show stage III COPD (FEV1 46% predicted) with significant gas diffusion impairment (DLCO 27%, DLCO/VA 46%).
#Acute heart failure with reduced ejection fraction:
-Presented with hypertensive emergency with hemodynamic collapse with nitroglycerin.
-Etiology of exacerbation may be acute illness vs HTN emergency.
-Continue metoprolol and losartan.
-Add dapagliflozin 10 mf daily. Case management consult.
#Takotsubo Cardiomyopathy:
-Presumptive diagnosis as LV gram could not be performed due to severe right subclavia artery tortuosity/spasm.
-LVEF is 35 - 40% with normal basal woo but otherwise global hypokinesis.
-Cardiac catheterization revealed moderately to severely elevated pressures with no CAD. LV gram abandoned as noted.
-Continue diuresis.
-GDMT as noted above.
#Abnormal troponin:
-Troponin peaked at 0.194. Inconsistent with ACS.
-EKG shows T wave inversions anteriorly.
-Aspirin.
#Hypertensive emergency:
-Acute, resolved.
-BP's elevated, but not severe.
-Monitor response to GDMT. Currently on metoprolol, losartan, nifedipine.
-Acute BP control with nicardipine or nitroprusside (afterload reduction) rather than nitro (preload reduction) if needed.
#COPD exacerbation
-Moderate/severe on PFT's from August 2022. Repeat PFT's show stage III COPD with significant gas diffusion impairment.
-CT chest shows moderate emphysematous changes.
-Required intubation. Now extubated.
-Continue steroids per primary service.
#MOSES
-New diagnosis.
-Creatinine 1.3 today. This appears stable. Creatinine was last normal in 2018.
Subjective/Interval History:
Oxygen weaned. Now on RA.
Renal function stable.
CT Chest shows moderate COPD changes, no PNA. There is some LUQ lymph nodes that will require outpatient CT abdomen with IV/PO contrast.
DATA:
CT Chest, 07/14/2023:
IMPRESSION:
Mild to moderate emphysematous lung changes. Minor localized ground glass opacity and interstitial thickening in the left lower lobe. Nonspecific pneumonitis versus atelectasis. Mild atelectasis versus scarring. No evidence of pneumonia.
There are stable small pulmonary nodules.
Diffuse 4 cm ascending aortic ectasia without significant change. No cervical change in substernal extension of the thyroid gland and thyroid nodule.
Multiple left upper quadrant abdominal soft tissue masses, which could represent nodular peritoneal metastatic disease or enlarged lymph nodes. Complete abdomen CT examination with intravenous and oral contrast would be recommended.
Cardiac Catheterization, 07/13/2023:
CONCLUSIONS:
1. Right dominant circulation with mild tapering/luminal irregularities in the proximal RCA but no significant coronary artery disease.
2. Moderate to severely elevated filling pressures (LVEDP = 18 mmHg, PCWP = 24 mmHg at 69.9 kg).
3. Borderline low normal/mildly reduced systolic function (cardiac index 1.80 L/min/m�, a VO2 difference 5.31%).
4. Severe right subclavian tortuosity inhibiting the performance of a left ventriculogram. Based on echocardiographic findings in the absence of coronary disease, this is consistent with Takotsubo cardiomyopathy.
TTE, 07/11/2023:
CONCLUSIONS
Moderately reduced left ventricular systolic function. Left ventricular
ejection fraction is 35-40% by Monroe's method and visual assessment.
Global hypokinesis the mid to apical woo with basal woo best preserved.
No significant valvular disease.
Compared to previous echo 05/11/2016, the systolic dysfunction is new.
CXR, 07/11/2023:
IMPRESSION:
Endotracheal tube with tip in trachea above the nicol.
No pneumothorax.
Bilateral widespread bilateral prominent interstitial markings again seen.
Physical Exam
Vital Signs/Labs
Vital Signs
Temp Pulse Resp BP Pulse Ox
37.1 C 80 20 124/66 91
07/15/23 07:09 07/15/23 04:45 07/15/23 07:09 07/15/23 04:32 07/15/23 07:09
07/13/23 07/14/23 07/15/23
11:59 11:59 11:59
Actual Weight 70.3 kg 71.6 kg 71.4 kg
07/15/23 04:43
07/15/23 04:43
APTT 78.9 Sec (23.4-35.0) H 07/13/23 10:05
Magnesium 2.0 mg/dl (1.6-2.3) 07/15/23 04:43
Triglycerides 80 mg/dl (10-149) 07/12/23 05:52
LDL Cholesterol, Calc 51 mg/dl 07/12/23 05:52
VLDL Cholesterol, Calc 16 mg/dl (0-30) 07/12/23 05:52
HDL Cholesterol 61 mg/dl 07/12/23 05:52
07/11/23
08:53
Ahl-S-Pzjoozalzwu Pept [id number]
Physical Exam
Constitutional: No acute distress and Comfortable
EENT: Anicteric and Moist mucous membranes
Cardiovascular: Rhythm & rate is regular, Pedal edema is absent, JVD pressure is normal, S1S2 is normal and Murmur/rub/gallop absent
Respiratory: Respiratory effort normal, Wheeze Absent, Rhonchi Absent and Crackles Present (Coarse, inspiratory/expiratory.)
GI: Soft, Distention absent, Flat, Non tender and Normal bowel sounds
Neuro/Psych: AO x 3
Data Reviewed
-
Date of Service: July 15, 2023
Medical Decision Making: Reviewed Test Results, Independent Historian Assessment and Test Interpretation
EKG: Tracing Personally Visualized and interpreted and Report Reviewed by me
Echo: Tracing Personally Visualized and interpreted and Report Reviewed by me
X-Ray/CT/US/MRI/NUC/PET: Image Personally Visualized and interpreted and Report Reviewed by me
Medical Tests (PFT, Pathology etc): Image Personally Visualized and interpreted and Report Reviewed by me
Labs: Labs Reviewed by me
[2023-07-15] MEDS: SPIRIVA RESPIMAT 2.5 MCG 2 PUFF INH (07:45)
[2023-07-15] MEDS: ADVAIR HFA 230/21 MCG INHALER 2 PUFF INH (07:45)
[2023-07-15] MEDS: PROCARDIA XL (EXTENDED RELEASE) 30 MG PO (08:20)
[2023-07-15] MEDS: DELTASONE 40 MG PO (08:20)
[2023-07-15] MEDS: ASPIR LOW (ENTERIC COATED) 81 MG PO (08:20)
[2023-07-15] MEDS: COZAAR 25 MG PO (08:20)
[2023-07-15] MEDS: KCL 40 MEQ PO (08:20)
[2023-07-15] MEDS: MUCINEX 600 MG PO (09:09)
[2023-07-15] MEDS: FARXIGA 10 MG PO (09:09)
[2023-07-15] MEDS: HYDREA 1000 MG PO (09:09)
[2023-07-15] MEDS: LASIX 40 MG PO (09:09)
[2023-07-15] MEDS: LASIX IV (09:13)
--- NOTE | 2023-07-15 09:18 | PTCARENOTE ---
received patient sitting up in chair, congested today, Mucinex po given as ordered. K 3.4 today, supplemented as ordered. resp. in room monitoring patient if she qualifies for home o2. monitor shows NSR, VSS.
--- NOTE | 2023-07-15 10:33 | W.PN.HOSP.TC ---
Today's Communication/Plan
-
d/c with home O2
Assessment / Plan
Assessment / Plan
pt is an 82 year old female
Patient is in need of oxygen on exertion due to pulse oximetry of 93% on room air at rest; 86% on room air with exertion. Patient was placed on 2L O2 via nasal cannula with saturation of 92%. Oxygen will help to improve hypoxemia. Patient is mobile
within the home. Albuterol therapy has been discussed and is ineffective in treating hypoxemia-related symptoms. Oxygen will improve the patient's symptoms.
Acute respiratory distress requiring intubation and ventilator support (VDRF)--extubated 07/11--presumed due to flash pulmonary edema--apprec structured cabling technician/cardiology--echo with EF 35-40% with global hypokinesis, cath c/w Takotsubo's--continue diuresis
Flash pulmonary edema--likely secondary to hypertensive emergency from presumed hypoxia and inability to breathe--there may be some component of a chronic obstructive pulmonary disease exacerbation due to a viral illness prior to admission--continue
PO steroids and diuresis--echo as above getting chest CT, PFTs, and assessing for home O2--qualifies for home O2
Essential hypertension--with presumed hypertensive emergency--blood pressure was low from intubation and sedation--was placed on nitro drip--weaned off--off levophed--BP stabilized
hypokalemia--replete, with ongoing diuresis
Lactic acidosis--resolved--presumed due to anaerobic metabolism--doubt sepsis
RA--Patient immunosuppressed--on Humira and Plaquenil, hydroxyurea-- resume
DVT prophylaxis--Lovenox
CODE STATUS--full code
Anticipated Discharge: Today
Subjective/Interval History
-
Date of Service: July 15, 2023
pt qualifies for home O2
OK for d/c
Objective Data
-
Labs:
Laboratory Results
07/15/23
04:43
WBC 6.9
Hgb 12.5
Hct 36.1 L
Plt Count 297
Sodium 132 L
Potassium 3.4 L
Chloride 97 L
Carbon Dioxide 27
BUN 50 H
Creatinine 1.3 H
Glucose 97
Calcium 9.6
Vital Signs:
max temp for 24 hours
07/15/23
07:09
Temp 98.8 F
Vital Signs
Temp Pulse Resp BP Pulse Ox
98.8 F 81 16 139/69 92
07/15/23 07:09 07/15/23 09:45 07/15/23 07:46 07/15/23 09:09 07/15/23 08:30
I&O
07/14/23 07/15/23 07/16/23
06:59 06:59 06:59
Intake Total 297.5 / 297.5 480 / 480
Output Total 500 / 500
Balance -202.5 / -202.5 480 / 480
Review of Systems
-
All other systems: Reviewed and negative
Physical Exam
-
General: Well Developed, Well Nourished and No Apparent Distress
HEENT: Normocephalic and Atraumatic; Negative Oxygen
Respiratory: Wheezes (faint wheezes at the bases)
Cardiac: Regular Rhythm, S1/S2 and Murmur
GI: Soft, Nontender, Nondistended and Normal Bowel Sounds
Musculoskeletal: No Clubbing, No Cyanosis and No Edema
Neuro: Awake and Alert
Psych: Calm
[2023-07-15 12:00] VITALS: BP 139/79
--- NOTE | 2023-07-15 12:18 | PTCARENOTE ---
Zarina was ordered on discharge, read case management note, patient cannot afford medication. TT Dr. Francois Graves, D/C'd Zarina.
--- NOTE | 2023-07-15 13:57 | PTCARENOTE ---
D/C instructions given to patient, verbalizes understanding. INT D/C'd, telemetry D/C'd, O2 was delivered to patients room. personal belongings packed and sent with patient. [facility] D/C to home via wc accompanied by staff.
--- NOTE | 2023-07-15 15:13 | W.DCSUMMARY ---
Discharge Summary
Discharge Data
Date of Admission: 07/11/23
Date of Discharge: 07/15/23
-
Pending Results: No
Hospital Course
Primary care physician : Jessica Fair
Principal Discharge diagnosis : Acute respiratory distress requiring intubation, flash pulmonary edema, hypertensive emergency
Chronic Discharge diagnosis : Rheumatoid arthritis
Hospital Course : Patient was an 82-year-old female who reportedly had been sick for a few days prior to admission and visited her primary care physician. She was given an inhaler but her shortness of breath worsened over the past day prior to
admission. Emergency medical services was called and found the patient agitated and hypoxic. Pulse ox was 80% and patient was tachypneic and tachycardic. She was placed on a nonrebreather mask and transferred here. She did not tolerate initial
therapies of BiPAP at all. Chest x-ray shows pulmonary edema and the patient was intubated. Pt was admitted.
Problem #1: Acute respiratory distress requiring intubation. This was presumed to be due to flash pulmonary edema. Echocardiogram done at the bedside showed an ejection fraction of 35 to 40% with global hypokinesis. Patient was diuresed and was
able to be extubated on July 12, 2023. She was seen in consultation by the intensive care physician who managed the ventilator. Once extubated, patient did have a CAT scan of her chest on July 14, 2023 which showed mild to moderate emphysematous
changes consistent with chronic obstructive pulmonary disease, stable small pulmonary nodules, left upper quadrant abdominal soft tissue masses (which need to be followed up as an outpatient with dedicated CAT scan of the abdomen and pelvis with
oral and IV contrast if able).
Problem #2: Flash pulmonary edema. This was thought to be secondary to hypertensive emergency from presumed hypoxia and inability to breathe. Given the CAT scan findings chronic obstructive pulmonary disease exacerbation was also in the
differential. Patient was placed on steroids and given diuresis as mentioned. Patient did qualify for home oxygen therapy due to pulse ox of 86% while ambulating. Patient did undergo cardiac catheterization which showed normal coronary arteries
and consistent with Takotsubo's cardiomyopathy. She will be discharged home with diuretics. She was seen in consultation by cardiology and will need to follow-up with them at discharge. She would likely need follow-up echocardiogram in 3 to 6
months.
Problem #3: Hypertensive emergency. This may have been as a result of hypoxia and inability to breathe which drove the blood pressure high. She was started on IV nitro drip. However, once she was intubated and given medications for sedation her
blood pressure dropped, she was weaned off nitro drip and started on Levophed which also was weaned off the same day it was started. Heart failure medications were started which will help with blood pressure as well. With diuresis, potassium was
low and was repleted. In addition, patient had lactic acidosis which was primarily due to anaerobic metabolism and that also resolved.
Problem #4: Rheumatoid arthritis. Initially, patient had Humira, Plaquenil, and hydroxyurea on hold due to the acuity. These were restarted at discharge.
Patient is stable for discharge home at this time with home oxygen being set up. If there are any questions regarding this dictation or her hospital stay, please not hesitate to call. Our office number is [phone].
Time for discharge 37 minutes.
Important imaging findings :
CT SCAN CHEST IMPRESSION:
Mild to moderate emphysematous lung changes. Minor localized ground glass opacity and interstitial thickening in the left lower lobe. Nonspecific pneumonitis versus atelectasis. Mild atelectasis versus scarring. No evidence of pneumonia.
There are stable small pulmonary nodules.
Diffuse 4 cm ascending aortic ectasia without significant change. No cervical change in substernal extension of the thyroid gland and thyroid nodule.
Multiple left upper quadrant abdominal soft tissue masses, which could represent nodular peritoneal metastatic disease or enlarged lymph nodes. Complete abdomen CT examination with intravenous and oral contrast would be recommended.
Procedure findings :
ECHO CONCLUSIONS:
Moderately reduced left ventricular systolic function. Left ventricular
ejection fraction is 35-40% by Monroe's method and visual assessment.
Global hypokinesis the mid to apical woo with basal woo best preserved.
No significant valvular disease.
Compared to previous echo 05/11/2016, the systolic dysfunction is new.
CARDIAC CATH CONCLUSIONS:
1. Right dominant circulation with mild tapering/luminal irregularities in the proximal RCA but no significant coronary artery disease.
2. Moderate to severely elevated filling pressures (LVEDP = 18 mmHg, PCWP = 24 mmHg at 69.9 kg).
3. Borderline low normal/mildly reduced systolic function (cardiac index 1.80 L/min/m�, a VO2 difference 5.31%).
4. Severe right subclavian tortuosity inhibiting the performance of a left ventriculogram. Based on echocardiographic findings in the absence of coronary disease, this is consistent with Takotsubo cardiomyopathy.
Discharge Plan
-
Patient Disposition: Home with Home Care
Discharge Diagnosis/Procedures: Acute respiratory distress requiring intubation from flash pulmonary edema, flash pulmonary edema from hypoxia, hypertensive emergency, cardiac catheterization with Takotsubo's, hypokalemia, lactic acidosis,
rheumatoid arthritis with immunosuppression
Condition: Good
Diet: Low Cholesterol and 2 Gram Sodium
Activity: As tolerated
Driving Restrictions: As prior to admission
Bathing Restrictions: None
Specialty Instructions: Weigh Daily- Call MD for wt gain/loss 3 lbs overnight/5 lbs in 1 week
Activity Restrictions/Additional Instructions:
You have an abnormality next to your spleen in your abdomen. This was noted on the CAT scan of your chest. You will need to get a CAT scan of your abdomen and pelvis as an outpatient to further investigate this. Script can be given by your PCP.
Stand Alone Forms: DC Instructions- Cath/EP Lab
Referrals:
[facility] [Outside] - in one to two days
Ronald Young MD [Active] - in two to three weeks
Jessica Fair MD [Active] - in less than 1 week
Alen Jc MD [Active] - in one week
Prescriptions:
New
potassium chloride 20 mEq Tablet,Er Particles/Crystals
20 meq PO DAILY Qty: 30 0RF
furosemide 40 mg Tablet
40 mg PO DAILY Qty: 30 0RF
acetaminophen 325 mg Tablet
650 mg PO Q4HPRN PRN (Reason: mild pain) Qty: 0 0RF
metoprolol succinate 25 mg Tablet Extended Release 24 Hr
12.5 mg PO HS Qty: 30 0RF
prednisone 10 mg Tablet
See Rx Instructions .ROUTE .COMPLEX Qty: 30 0RF
Rx Instructions:
Take By Mouth:
40 mg daily x3 days, 30 mg daily x3 days,
20 mg daily x3 days, 10 mg daily x3 days.
Continued
hydroxyurea 500 MG capsule
1,500 mg PO MO
hydroxyurea 500 MG capsule
1,000 mg PO SUTUWETHFRSA
aspirin 81 MG tablet,delayed release (DR/EC)
81 mg PO DAILY
Rx Instructions:
has not been taking regularly
losartan 25 mg Tablet
25 mg PO DAILY
hydroxychloroquine [Plaquenil] 200 mg Tablet
200 mg PO BID
Humira(CF) Pen 40 mg/0.4 mL Pen Injector Kit
0 mg SC .COMPLEX
Rx Instructions:
inject one - 40 mg/0.4 mL pen every 2 weeks
Trelegy Ellipta 200-62.5-25 mcg Blister With Device
1 inh INHALATION R DAILY
albuterol sulfate [Ventolin HFA] 90 MCG/PUFF HFA aerosol inhaler
2 puff inhalation R Q6HPRN PRN (Reason: sob)
guaifenesin [Mucus Relief ER] 600 MG tablet extended release 12hr
600 mg PO [id number] PRN (Reason: cough)
nifedipine 30 mg Tablet Extended Release 24hr
30 mg PO DAILY
Patient Comments:
07/11/23-patient did not like the way (weight gain) the 60mg made her feel so she went back to the 30mg daily
Discharge Orders:
Discharge Patient (As Directed); Ordered 07/15/23
Ordered By: Marisol Pulido
Care Plan Goals
Care Plan Goals:
Problem: Readiness for enhanced knowledge related to diagnosis and treatment plan
Goal: Understand your diagnosis and treatment plan needs, including medications if applicable.
Instructions: Know your diagnosis, underlying causes and treatment plan options, including medications if applicable. Consult with your health care team to learn about your diagnosis and treatment plan, including medications if applicable.
Discharge Date and Time
Print Language: CHADIAN
--- NOTE | 2023-07-18 10:58 | W.HF.CON ---
Heart Failure
- LV Function
Left ventricular function study result: LV Ejection fraction >35% - 40%
Ejection Fraction Percentage: 35-40
- ARNI
Patient already on ARNI: No
Heart Failure ARNI Contraindication: Acute Renal Failure
- ACEI/ARB
Patient already on ACEI/ARB: Yes
- Beta Alison
Patient already on Evidence Based Beta Alison: Yes
- Mineralocorticord Receptor Antagonist
Patient already on MRA: No
Heart Failure MRA Contraindication: Acute Renal Insufficiency
- SGLT-2 Inhibitor
Patient already on SGLT-2 Inhibitor: No
Heart Failure SGLT-2 Inhibitor Contraindication: Patient Refusal
- NYHA CHF Classification
NYHA CHF Classification Level: Class III - Symptoms w/ min exertion, interferes w/ nml daily activity (COPD/ILD)
- ACC/AHA Stage
ACC/AHA Stage: Stage C: Symptomatic Heart Failure
== END 2023-07-15 15:40 | disposition home health service (06) | DRG 208 ==
LOC: IVU 10:52
PROVIDERS: Internal Medicine Cardiovascular Disease; Nurse Practitioner Family; Nurse Practitioner Gerontology; Nurse Practitioner Primary Care; ADMITTING PHYSICIAN Internal Medicine; CONSULT PHYSICIAN Internal Medicine Cardiovascular Disease; CONSULT PHYSICIAN Internal Medicine Critical Care Medicine; EMERGENCY PHYSICIAN Emergency Medicine
PROC: 5A09357 Assistance with Respiratory Ventilation, Less than 24 Consecutive Hours, Continuous Positive Airway Pressure (ICD-10-PCS; 2023-07-11)
PROC: 5A1935Z Respiratory Ventilation, Less than 24 Consecutive Hours (ICD-10-PCS; 2023-07-11)
PROC: 0BH17EZ Insertion of Endotracheal Airway into Trachea, Via Natural or Artificial Opening (ICD-10-PCS; 2023-07-11)
PROC: B2111ZZ Fluoroscopy of Multiple Coronary Arteries using Low Osmolar Contrast (ICD-10-PCS; 2023-07-13)
PROC: 4A023N8 Measurement of Cardiac Sampling and Pressure, Bilateral, Percutaneous Approach (ICD-10-PCS; 2023-07-13)
DX: J96.01 Acute respiratory failure with hypoxia (principal); I50.21 Acute systolic (congestive) heart failure; I16.1 Hypertensive emergency; E87.20 Acidosis, unspecified; D84.821 Immunodeficiency due to drugs; J44.1 Chronic obstructive pulmonary disease with (acute) exacerbation; N17.9 Acute kidney failure, unspecified; I51.81 Takotsubo syndrome; J96.02 Acute respiratory failure with hypercapnia; I11.0 Hypertensive heart disease with heart failure; D46.9 Myelodysplastic syndrome, unspecified; E78.00 Pure hypercholesterolemia, unspecified; M06.9 Rheumatoid arthritis, unspecified; F32.9 Major depressive disorder, single episode, unspecified; I77.810 Thoracic aortic ectasia; E87.6 Hypokalemia; Z11.52 Encounter for screening for COVID-19; Z79.620 Long term (current) use of immunosuppressive biologic; Z79.82 Long term (current) use of aspirin; Z79.899 Other long term (current) drug therapy; Z87.891 Personal history of nicotine dependence
CPT/HCPCS: 94727; 94729; 31500; 36600; 71045; 71250; 80048; 80053; 80061; 82805; 83605; 83735; 83880; 84145; 84484; 85025; 85027; 85730; 87040; 87502; 87811; 93005; 93306; 93460; 94002; 94003; 94060; 94640; 94660; 96374; 96375; 97116; 97163; 97166; 99291; C1894; Q9967

== ENCOUNTER → 2023-08-26 13:09 | Outpatient (REF) | payer MEDICARE, SELFPAY | LOC: RAD 13:09 | PROVIDERS: ATTENDING PHYSICIAN Student in an Organized Health Care Education/Training Program | DX: D21.4 Benign neoplasm of connective and other soft tissue of abdomen (principal); R19.02 Left upper quadrant abdominal swelling, mass and lump | CPT/HCPCS: 74177; Q9967 ==

== ENCOUNTER 2023-09-28 06:15 | Day surgery (SDC) | payer OTHER, SELFPAY ==
[2023-09-28 09:25] VITALS: BMI 29.5
[2023-09-28 09:26] VITALS: BMI 29.5
[2023-09-28 09:27] VITALS: BP 171/97
[2023-09-28 11:41] VITALS: BP 115/64
[2023-09-28 11:45] VITALS: BP 115/71
[2023-09-28 12:00] VITALS: BP 131/70
[2023-09-28 12:06] VITALS: BP 124/77
== END 2023-09-28 12:29 | disposition home or self-care (01) ==
LOC: SDS 06:15
PROVIDERS: ATTENDING PHYSICIAN Internal Medicine Gastroenterology
DX: C49.A2 Gastrointestinal stromal tumor of stomach (principal); K31.89 Other diseases of stomach and duodenum; K86.89 Other specified diseases of pancreas; R93.5 Abnormal findings on diagnostic imaging of other abdominal regions, including retroperitoneum
CPT/HCPCS: 43238; 43239; 88172; 88173; 88305; 88341; 88342

== ENCOUNTER → 2023-10-05 12:48 | Outpatient (REF) | payer OTHER, SELFPAY | LOC: RCS 12:48 | PROVIDERS: ATTENDING PHYSICIAN Nurse Practitioner Gerontology; FAMILY PHYSICIAN Student in an Organized Health Care Education/Training Program | DX: I50.20 Unspecified systolic (congestive) heart failure (principal); I51.81 Takotsubo syndrome | CPT/HCPCS: 93308; 93321; 93325 ==

== ENCOUNTER → 2024-01-02 08:32 | Outpatient (REF) | payer OTHER, SELFPAY ==
[2024-01-02 08:53] LABS: % Basophils 1.9 % (0-2); % Immature Granulocytes 0.6 % (0-0.5); % Lymphocytes 20.1 % (20.5-51.1); % Monocytes 10.9 % (1.7-9.3); % Neutrophils 63.5 % (42.2-75.2); Absolute Basophils 0.1 10^3/uL (0-0.2); Absolute Eosinophils 0.2 10^3/uL (0-0.7); Absolute Lymphocytes 1.3 10^3/uL (1.2-3.4); Absolute Monocytes 0.7 10^3/uL (0.1-0.6); Hematocrit 37.9 % (37.0-47.0); Hemoglobin 12.4 g/dL (12.0-16.0); Mean Corp Hgb Conc. 32.7 g/dL (33.0-37.0); Mean Corpuscular Hgb 30.8 pg (27.0-31.0); Mean Platelet Volume 9.6 fL (7.4-10.4); Nucleated Red Blood Cells % 0 %; Platelet Count 378 10^3/uL (130-400); Red Blood Cell Count 4.03 10^6/uL (4.20-5.40); Red Cell Dist. Width 15.4 % (11.5-14.5); White Blood Cell Count 6.3 10^3/uL (4.8-10.8)
[2024-01-02 10:10] LABS: Vitamin D, 25-OH*** 45.8 ng/mL (30-80)
== END ==
LOC: OIDL 08:32
PROVIDERS: ATTENDING PHYSICIAN Internal Medicine Hematology & Oncology
DX: D47.3 Essential (hemorrhagic) thrombocythemia (principal); R91.1 Solitary pulmonary nodule; C49.A2 Gastrointestinal stromal tumor of stomach; D50.0 Iron deficiency anemia secondary to blood loss (chronic)
CPT/HCPCS: 82306; 85025

== ENCOUNTER → 2024-01-09 10:02 | Outpatient (REF) | payer OTHER, SELFPAY ==
[2024-01-09 09:07] LABS: % Basophils 2.5 % (0-2); % Eosinophils 4.6 % (0-6); % Immature Granulocytes 0.4 % (0-0.5); % Lymphocytes 21.5 % (20.5-51.1); % Monocytes 11.9 % (1.7-9.3); % Neutrophils 59.1 % (42.2-75.2); Absolute Basophils 0.1 10^3/uL (0-0.2); Absolute Eosinophils 0.3 10^3/uL (0-0.7); Absolute Lymphocytes 1.2 10^3/uL (1.2-3.4); Absolute Monocytes 0.7 10^3/uL (0.1-0.6); Absolute Neutrophils 3.3 10^3/uL (1.4-6.5); Hematocrit 42.1 % (37.0-47.0); Hemoglobin 13.5 g/dL (12.0-16.0); Mean Corp Hgb Conc. 32.1 g/dL (33.0-37.0); Mean Corpuscular Hgb 32.1 pg (27.0-31.0); Mean Platelet Volume 9.5 fL (7.4-10.4); Nucleated Red Blood Cells % 0 %; Platelet Count 357 10^3/uL (130-400); Red Blood Cell Count 4.21 10^6/uL (4.20-5.40); Red Cell Dist. Width 18.5 % (11.5-14.5); White Blood Cell Count 5.6 10^3/uL (4.8-10.8)
[2024-01-09 09:17] LABS: ALT (SGPT) 23 U/L (0-35); AST (SGOT) 29 U/L (14-36); Albumin 4.4 g/dl (3.5-5.0); Alkaline Phosphatase 74 U/L (38-126); Blood Urea Nitrogen 24 mg/dl (7-17); Calcium 8.9 mg/dl (8.4-10.2); Carbon Dioxide 27 mmol/L (22-30); Chloride 103 mmol/L (98-107); Glucose 91 mg/dl (70-99); Phosphorus 2.3 mg/dl (2.5-4.5); Sodium 141 mmol/L (135-145); Total Bilirubin 0.6 mg/dl (0.2-1.3); eGFR 41.31
[2024-01-09 10:17] LABS: TSH Reflex To Free T4 1.58 uIU/ml (0.47-4.68)
== END ==
LOC: OIDL 10:02
PROVIDERS: ATTENDING PHYSICIAN Internal Medicine Hematology & Oncology
DX: D47.3 Essential (hemorrhagic) thrombocythemia (principal)
CPT/HCPCS: 80053; 84100; 84443; 85025

== ENCOUNTER → 2024-05-30 10:48 | Outpatient (REF) | payer OTHER, SELFPAY ==
[2024-05-30 10:51] LABS: % Basophils 0.5 % (0-2); % Immature Granulocytes 0.5 % (0-0.5); % Lymphocytes 12.5 % (20.5-51.1); % Monocytes 14.5 % (1.7-9.3); Absolute Eosinophils 0.3 10^3/uL (0-0.7); Absolute Monocytes 1.2 10^3/uL (0.1-0.6); Absolute Neutrophils 5.7 10^3/uL (1.4-6.5); Hematocrit 32.1 % (37.0-47.0); Hemoglobin 10.7 g/dL (12.0-16.0); Mean Corp Hgb Conc. 33.3 g/dL (33.0-37.0); Mean Corpuscular Hgb 34.4 pg (27.0-31.0); Mean Corpuscular Volume 103.2 fL (81.0-99.0); Mean Platelet Volume 9.5 fL (7.4-10.4); Platelet Count 390 10^3/uL (130-400); Red Blood Cell Count 3.11 10^6/uL (4.20-5.40); Red Cell Dist. Width 14.4 % (11.5-14.5); White Blood Cell Count 8.2 10^3/uL (4.8-10.8)
[2024-05-30 13:50] LABS: Phosphorus 3.4 mg/dl (2.5-4.5)
== END ==
LOC: OIDL 10:48
PROVIDERS: ATTENDING PHYSICIAN Internal Medicine Hematology & Oncology
DX: D47.3 Essential (hemorrhagic) thrombocythemia (principal); R91.1 Solitary pulmonary nodule; C49.A2 Gastrointestinal stromal tumor of stomach; D50.0 Iron deficiency anemia secondary to blood loss (chronic)
CPT/HCPCS: 84100; 85025